=== PATIENT | male | born 1945 | race Caucasian/White ===

== ENCOUNTER 2017-07-30 17:20 | Inpatient (IN) | payer MEDICARE ==
[~2017-07-30] VITALS: Ht 175.3 cm; Wt 76.4 kg
[2017-07-30] MEDS ORDERED: ONDANSETRON 4MG/2ML VIAL (J2405) IV PRN (18:15)
[2017-07-30 21:00] VITALS: BP 141/66
[2017-07-30] MEDS ORDERED: BACITAB PO (21:47)
[2017-07-30] MEDS ORDERED: FENO54TA2 PO (21:47)
[2017-07-30] MEDS ORDERED: FINA5TAB2 PO (21:47)
[2017-07-30] MEDS ORDERED: RAMI10CA PO (21:47)
[2017-07-30] MEDS ORDERED: SIMV20TA2 PO (21:47)
[2017-07-30] MEDS ORDERED: ALFU10TA2 PO (21:47)
[2017-07-30] MEDS ORDERED: TOPI25TA10 PO (21:47)
[2017-07-30] MEDS ORDERED: CILO100T PO (21:47)
[2017-07-30] MEDS ORDERED: INSUH10VL SC (21:47)
[2017-07-30] MEDS ORDERED: TRAM50TA2 PO (21:47)
[2017-07-30] MEDS ORDERED: PERC5TAB12 PO (21:47)
[2017-07-30] MEDS ORDERED: METO50TA7 PO (21:47)
[2017-07-30] MEDS ORDERED: VITA100066 PO (21:47)
[2017-07-30] MEDS ORDERED: NIFE15TA PO (21:47)
[2017-07-30] MEDS ORDERED: ACET1TAB17 PO (21:47)
[2017-07-30] MEDS ORDERED: INSULANT SC (21:47)
[2017-07-30] MEDS ORDERED: HYDR25TAB PO (21:47)
[2017-07-30] MEDS ORDERED: OMEP20CA3 PO (21:47)
[2017-07-30 23:04] LABS: BASO % 0.2 % (0.0-1.0); EOS # 0.2 10^3/uL (0.0-0.50); EOS % 1.8 % (0.0-3.0); LYMPH # 1.5 10^3/uL (1.5-4.5); LYMPH % 12.8 % (24.0-44.0); MEAN CORPUSCULAR HEMOGLOBIN 26.8 pg (27.0-33.0); MEAN CORPUSCULAR HGB CONC 31.9 g/dl (32.0-36.5); MONO % 8.3 % (0.0-5.0); NEUTROPHILS # 8.7 10^3/uL (1.8-7.7); NEUTROPHILS % 75.9 % (36.0-66.0); PLATELET COUNT, AUTOMATED 549 10^3/uL (150-450); RED CELL DISTRIBUTION WIDTH 14.5 % (11.5-14.5); WHITE BLOOD COUNT 11.5 10^3/uL (4.0-10.0)
[2017-07-30 23:16] LABS: INR 1.15
[2017-07-30] MEDS: HEPARIN SOD (PORCINE) 5000 UNITS/ML VIAL SC SCH (23:26)
[2017-07-30] MEDS: CILOSTAZOL 100 MG TAB (PLETAL) PO SCH (23:26)
[2017-07-30] MEDS: TOPIRAMATE (TopAMAX) 25 MG TAB PO SCH (23:26)
[2017-07-30] MEDS: PIPERACILLIN/TAZOBACTAM SOD 3.375 GM in APPROPRIATE DILUENT 1 EA IV SCH (23:26)
[2017-07-30] MEDS: SIMVASTATIN 20 MG TAB PO SCH (23:27)
[2017-07-30] MEDS: PERCOCET 5MG/325MG TAB PO PRN (23:27)
[2017-07-30 23:28] LABS: ALBUMIN 2.3 GM/DL (3.2-5.2); ALBUMIN/GLOBULIN RATIO 0.43 (1.00-1.93); ALKALINE PHOSPHATASE 90 U/L (45-117); ALT/SGPT 10 U/L (12-78); ANION GAP 8 MEQ/L (8-16); AST/SGOT 10 U/L (7-37); BILIRUBIN,TOTAL 0.2 MG/DL (0.2-1.0); BLOOD UREA NITROGEN 25 MG/DL (7-18); CALCIUM LEVEL 8.7 MG/DL (8.8-10.2); CARBON DIOXIDE LEVEL 28 MEQ/L (21-32); CHLORIDE LEVEL 101 MEQ/L (98-107); CREATININE FOR GFR 1.26 MG/DL (0.70-1.30); GLOMERULAR FILTRATION RATE > 60.0 (>42); GLUCOSE, FASTING 180 MG/DL (83-110); POTASSIUM SERUM 3.5 MEQ/L (3.5-5.1); SODIUM LEVEL 137 MEQ/L (136-145); TOTAL PROTEIN 7.6 GM/DL (6.4-8.2)
[2017-07-30] MEDS: METOPROLOL TART 50 MG TAB PO SCH (23:28)
[2017-07-31] MEDS: traMADol 50 MG TAB PO PRN ×2 (01:02→17:29)
[2017-07-31] MEDS: PIPERACILLIN/TAZOBACTAM SOD 3.375 GM in APPROPRIATE DILUENT 1 EA IV SCH ×4 (04:58→21:42)
[2017-07-31] MEDS: PERCOCET 5MG/325MG TAB PO PRN ×2 (04:59→20:50)
[2017-07-31 06:00] VITALS: BP 134/67
[2017-07-31] MEDS: HumaLOG INSULIN (NovoLOG) PER UNIT SC SCH ×4 (07:30→21:43)
[2017-07-31] MEDS ORDERED: HumaLOG INSULIN (NovoLOG) PER UNIT SC SCH (07:30)
[2017-07-31] MEDS ORDERED: GLUCAGON FOR INJ 1 MG VIAL (J1610) SC PRN (08:45)
[2017-07-31] MEDS ORDERED: GLUCOSE 4 GM CHEW TABLET PO PRN (08:45)
[2017-07-31] MEDS ORDERED: DEXTROSE 50% 50 ML SYRINGE IV PRN (08:45)
[2017-07-31] MEDS: RAMIPRIL 5 MG CAP PO SCH (09:21)
[2017-07-31] MEDS: hydroCHLOROthiazide 25 MG TAB PO SCH (09:21)
[2017-07-31] MEDS: LACTOBACILLUS ACIDOPHILUS CAP (BACID) PO SCH ×3 (09:21→17:28)
[2017-07-31] MEDS: HEPARIN SOD (PORCINE) 5000 UNITS/ML VIAL SC SCH ×2 (09:21→21:42)
[2017-07-31] MEDS: NIFEdipine 60 MG XL TAB PO SCH (09:21)
[2017-07-31] MEDS: CILOSTAZOL 100 MG TAB (PLETAL) PO SCH ×2 (09:21→21:42)
[2017-07-31] MEDS: VITAMIN D 1,000 INTERNATIONAL UNITS TABLET PO SCH (09:22)
[2017-07-31] MEDS: METOPROLOL TART 50 MG TAB PO SCH ×2 (09:22→21:43)
[2017-07-31] MEDS: OMEPRAZOLE 20 MG CAP PO SCH (09:22)
[2017-07-31] MEDS: TOPIRAMATE (TopAMAX) 25 MG TAB PO SCH ×2 (09:22→21:43)
[2017-07-31] MEDS: FINASTERIDE 5 MG TAB PO SCH (09:22)
--- NOTE | 2017-07-31 12:28 | HPEPDOC ---
General Date of Admission Jul 30, 2017 at 20:39 Attending Physician: Jose Francisco Bustillo MD Chief Complaint Nonhealing left transmetatarsal amputation and diabetes mellitus Source: Patient, Old records Exam Limitations: No limitations History of Present Illness Patient is a 72-year-old male with a past medical history significant for diabetes, hypertension, coronary artery disease who underwent a left transmetatarsal amputation which has subsequently broke down and is nonhealing. Patient was initially seen in the office and scheduled for an angiogram of the left lower extremity which has not yet occurred. Patient was most recently admitted to an outside hospital where he was treated for his left nonhealing transmetatarsal amputation. The patient was transferred to [facility] for a higher level of care to undergo a left lower extremity angiogram with possible angioplasty and/or stenting. The patient may also require surgical intervention for his nonhealing left transmetatarsal amputation. Patient has undergone wound care treatment at the wound care center for his nonhealing left transmetatarsal amputation. Home Medications Scheduled Alfuzosin Hydrochloride (Alfuzosin HCl ER) 10 Mg Tab, 10 MG PO DAILY, (Reported) Cholecalciferol (Vitamin D) 1,000 Unit Tab, 1,000 UNIT PO DAILY, (Reported) Cilostazol (Cilostazol) 100 Mg Tab, 100 MG PO BID, (Reported) Fenofibrate (Fenofibrate) 54 Mg Tab, 54 MG PO DAILY, (Reported) Finasteride (Finasteride) 5 Mg Tab, 5 MG PO DAILY, (Reported) Hydrochlorothiazide (Hydrochlorothiazide) 25 Mg Tab, 25 MG PO DAILY, (Reported) Insulin Aspart (Novolog) 100 U/Ml Inj, 1 DOSE SC AC, (Reported) Insulin Glargine (Lantus) 1 Units/0.01 Ml Susp, 55 UNITS SC DAILY, (Reported) Lactobacillus Acidophilus (Bacid) 1 Tab Tab, 1 TAB PO WM, (Reported) Metoprolol Tartrate (Metoprolol Tartrate) 50 Mg Tab, 50 MG PO BID, (Reported) Nifedipine (Nifedical Xl) 60 Mg Tab, 60 MG PO DAILY, (Reported) Omeprazole (Omeprazole) 20 Mg Cap, 20 MG PO DAILY, (Reported) Ramipril (Ramipril) 10 Mg Cap, 10 MG PO DAILY, (Reported) Simvastatin (Simvastatin) 20 Mg Tab, 20 MG PO QHS, (Reported) Topiramate (Topiramate) 25 Mg Tab, 25 MG PO BID, (Reported) Scheduled PRN Acetaminophen (Acetaminophen) 325 Mg Tab, 650 MG PO Q6H PRN for PAIN, (Reported) Oxycodone/Acetaminophen (Percocet 5-325 mg) 1 Tab Tab, 1 TAB PO BID PRN for PAIN , (Reported) Tramadol HCl (Tramadol HCl) 50 Mg Tab, 50 MG PO Q6H PRN for PAIN, (Reported) Allergies Coded Allergies: No Known Allergies (Unverified , 07/30/17) Past Medical History Medical History Diabetes type 2 Hypercholesterolemia Hypertension Coronary artery disease Surgical History Left transmetatarsal amputation Family History Significant Family History: Diabetes Father is with a history of diabetes mother is with a history of diabetes. Patient has one brother and 2 sisters all of which are and have a history of diabetes. Social History * Smoker: former Smoker, quit greater than 1 year Alcohol: Denies Drugs: denies Recent Travel/Sick Contacts: Denies: Recent travel, Recent sick contacts Psychosocial History: No pertinent psych hx Review of Symptoms Constitutional: Denies: Chills, Fever, Malaise, Night Sweats, Weakness, Fatigue , Weight Loss, Lethargy, Other Eyes: Denies: Pain, Vision change, Conjunctivae inflammation, Eyelid inflammation, Redness, Other ENT: Denies: Head Aches, Ear Pain, Dysphagia, Sinus Congestion, Post Nasal Drip , Sore Throat, Epistaxis, Other Symptoms Skin: Denies: Rash, Lesions, Jaundice, Bruising, Itching, Dry, Breakdown, Nail Changes, Other Pulmonary: Denies: Dyspnea, Cough, Pleuritic Chest Pain, Other Symptoms Cardiovascular: Denies: Chest Pain, Palpitations, Orthopnea, Paroxysmal Noc. Dyspnea, Edema, Lt Headedness, Other Symptoms Gastrointestinal: Denies: Nausea, Vomiting, Abdominal Pain, Diarrhea, Constipation, Melena, Hematochezia, Other Symptoms Genitourinary: Denies: Dysuria, Frequency, Incontinence, Hematuria, Retention, Other Symptoms Hematologic: Denies: Bruising, Bleeding Excessively, Petecchia, Purpura, Enlarged Lymph Nodes, Other Hematologic Endocrine: Denies: Polydipsia, Polyphagia, Polyuria, Heat Intolerance, Cold Intolerance, Other Endocrine Sx Musculoskeletal: Denies: Neck Pain, Back Pain, Shoulder Pain, Arm Pain, Hand Pain, Leg Pain, Foot Pain, Joint Pain, Muscle Pain, Spasms, Other Symptoms Neurological: Denies: Weakness, Numbness, Incoordination, Change in speech, Confusion, Seizures, Other Symptoms Psych: Denies: Mood Normal, Anxiety, Depression, Memory Issues, Thoughts of Self Harm, Anger, Thoughts of Harming Other, Other Psych Physical Examination General Exam: Positive: Alert, No Acute Distress Eye Exam: Positive: PERRLA, Conjunctiva & lids normal, EOMI, Negative: Sclera icteric, Ptosis, Other Eye Symptoms ENT Exam: Positive: Atraumatic, Mucous membr. moist/pink, Pharynx Normal Neck Exam: Positive: Supple, +2 carotid pulse wo bruit, Other, Negative: JVD, thyromegaly, Lymphadenopathy Chest Exam: Positive: Clear to auscultation, Normal air movement, Other, Negative: Rales, Rhonchi, Wheezing, Diminished Heart Exam: Positive: Rate Normal, Normal S1, Normal S2, Other, Negative: Tachycardic, Bradycardic, Regular Rhythm, Irregular Rhythm, Gallops , Murmurs, Rubs Telemetry: Positive: No significant arrhythmia, Other Telemetry:, Negative: Sinus, Atrial fibrillation, Tachycardia, Bradycardia, AV Block, Pause, SV Tach, PVCs, PACs, Asystole Abdomen Exam: Positive: Normal bowel sounds, Soft, Other, Negative: BS Hyperactive, BS Hypoactive, Tenderness, Hepatospenomegaly, Mass , Hernia Extremity Exam: Positive: Normal pulses, Other, Negative: Clubbing, Cyanosis, Edema, Tenderness, Swelling Skin Exam: Positive: Nl turgor and temperature, Negative: Rash, Breakdown, Lesion, Pruritus, Other skin issue Neuro Exam: Positive: Normal Speech, Reflexes 2+ Psych Exam: Positive: Mental status NL, Mood NL, Oriented x 3 Other physical findings Left transmetatarsal amputation wound is open with minimal granulation tissue and fibrinous exudate and slough within the wound. Vital Signs Vital Signs Date Time Temp Pulse Resp B/P (MAP) Pulse Ox O2 Delivery O2 Flow Rate FiO2 07/31/17 09:21 134/67 07/31/17 06:00 97.7 73 14 97 Room Air Laboratory Data Labs 24H Laboratory Tests 2 07/30/17 22:58: Immature Granulocyte % (Auto) 1.0H, White Blood Count 11.5H, Red Blood Count 3.32L, Hemoglobin 8.9L, Hematocrit 27.9L, Mean Corpuscular Volume 84.0, Mean Corpuscular Hemoglobin 26.8L, Mean Corpuscular Hemoglobin Concent 31.9L, Red Cell Distribution Width 14.5, Platelet Count 549H, Neutrophils (%) (Auto) 75.9H , Lymphocytes (%) (Auto) 12.8L, Monocytes (%) (Auto) 8.3H, Eosinophils (%) (Auto ) 1.8, Basophils (%) (Auto) 0.2, Neutrophils # (Auto) 8.7H, Lymphocytes # (Auto ) 1.5, Monocytes # (Auto) 1.0H, Eosinophils # (Auto) 0.2, Basophils # (Auto) 0.0 , Immature Granulocyte # (Auto) 0.1H, Nucleated Red Blood Cells % (auto) 0.0, Prothrombin Time 14.9H, Prothromb Time International Ratio 1.15, Activated Partial Thromboplast Time 39.6H, Anion Gap 8, Glomerular Filtration Rate > 60.0 , Blood Urea Nitrogen 25H, Creatinine 1.26, Sodium Level 137, Potassium Level 3.5, Chloride Level 101, Carbon Dioxide Level 28, Calcium Level 8.7L, Aspartate Amino Transf (AST/SGOT) 10, Alanine Aminotransferase (ALT/SGPT) 10L, Alkaline Phosphatase 90, Total Bilirubin 0.2, Total Protein 7.6, Albumin 2.3L, Albumin/ Globulin Ratio 0.43L 07/31/17 08:19: Bedside Glucose (Misc Panel) 226H 07/31/17 11:38: Bedside Glucose (Misc Panel) 203H CBC/BMP Laboratory Tests 07/30/17 22:58 Red Blood Count 3.32 L, Mean Corpuscular Volume 84.0, Mean Corpuscular Hemoglobin 26.8 L, Mean Corpuscular Hemoglobin Concent 31.9 L, Red Cell Distribution Width 14.5, Neutrophils (%) (Auto) 75.9 H, Lymphocytes (%) (Auto) 12.8 L, Monocytes (%) (Auto) 8.3 H, Eosinophils (%) (Auto) 1.8, Basophils (%) ( Auto) 0.2, Neutrophils # (Auto) 8.7 H, Lymphocytes # (Auto) 1.5, Monocytes # ( Auto) 1.0 H, Eosinophils # (Auto) 0.2, Basophils # (Auto) 0.0, Calcium Level 8.7 L, Aspartate Amino Transf (AST/SGOT) 10, Alanine Aminotransferase (ALT/SGPT ) 10 L, Alkaline Phosphatase 90, Total Bilirubin 0.2, Total Protein 7.6, Albumin 2.3 L Assessment/Plan Patient is a 72-year-old male with history of diabetes mellitus and a nonhealing left transmetatarsal amputation wound with nonpalpable pulses in the left lower extremity. She was transferred from an outside institution for a [facility] higher level of care and will undergo a left lower extremity angiogram with possible angioplasty and stent. The disposition of the left transmetatarsal amputation wound will depend on the findings during angiography. Plan / VTE VTE Prophylaxis Ordered?: Yes Jose Francisco Bustillo MD Jul 31, 2017 12:28
[2017-07-31] MEDS ORDERED: fentaNYL 100 MCG/2 ML INJECTION (J3010) As Ordered ONE (12:31)
[2017-07-31] MEDS ORDERED: HEPARIN 1,000 UNITS/ML 10ML VIAL (FOR RADIOLOGY& DIALYSIS ONLY) As Ordered ONE (12:31)
[2017-07-31] MEDS ORDERED: MIDAZOLAM INJ 2 MG/2 ML VIAL (J2250) As Ordered ONE (12:31)
[2017-07-31] MEDS ORDERED: PROTAMINE SULF INJ 50 MG/5 ML VIAL (J2720) As Ordered ONE (12:31)
[2017-07-31] MEDS ORDERED: ISOVUE-300 61% 50ML VIAL (Q9967) As Ordered ONE (12:31)
[2017-07-31 15:00] VITALS: BP 186/82
[2017-07-31] MEDS: LEVEMIR (INSULIN DETEMIR) 1 UNITS/0.01ML SC SCH (15:25)
[2017-07-31 15:30] VITALS: BP 158/73
[2017-07-31 16:00] VITALS: BP 157/72
[2017-07-31] MEDS: ACETAMINOPHEN TAB 650MG DOSE (2X325MG) PO PRN (21:41)
[2017-07-31] MEDS: SIMVASTATIN 20 MG TAB PO SCH (21:42)
[2017-07-31 22:00] VITALS: BP 152/70
[2017-08-01] MEDS: traMADol 50 MG TAB PO PRN ×3 (00:59→21:05)
[2017-08-01] MEDS: PIPERACILLIN/TAZOBACTAM SOD 3.375 GM in APPROPRIATE DILUENT 1 EA IV SCH ×4 (04:59→21:06)
[2017-08-01] MEDS: ACETAMINOPHEN TAB 650MG DOSE (2X325MG) PO PRN ×2 (05:01→18:09)
[2017-08-01 06:00] VITALS: BP 168/84
[2017-08-01] MEDS: LACTOBACILLUS ACIDOPHILUS CAP (BACID) PO SCH ×3 (08:00→17:02)
[2017-08-01] MEDS: LEVEMIR (INSULIN DETEMIR) 1 UNITS/0.01ML SC SCH (09:00)
[2017-08-01] MEDS: OMEPRAZOLE 20 MG CAP PO SCH (09:25)
[2017-08-01] MEDS: NIFEdipine 60 MG XL TAB PO SCH (09:25)
[2017-08-01] MEDS: CILOSTAZOL 100 MG TAB (PLETAL) PO SCH ×2 (09:25→21:11)
[2017-08-01] MEDS: hydroCHLOROthiazide 25 MG TAB PO SCH (09:25)
[2017-08-01] MEDS: RAMIPRIL 5 MG CAP PO SCH (09:26)
[2017-08-01] MEDS: VITAMIN D 1,000 INTERNATIONAL UNITS TABLET PO SCH (09:26)
[2017-08-01] MEDS: METOPROLOL TART 50 MG TAB PO SCH ×2 (09:26→21:04)
[2017-08-01] MEDS: FINASTERIDE 5 MG TAB PO SCH (09:26)
[2017-08-01] MEDS: TOPIRAMATE (TopAMAX) 25 MG TAB PO SCH ×2 (09:28→21:03)
[2017-08-01] MEDS: PERCOCET 5MG/325MG TAB PO PRN ×2 (09:29→17:08)
[2017-08-01] MEDS: HEPARIN SOD (PORCINE) 5000 UNITS/ML VIAL SC SCH ×2 (09:30→21:04)
[2017-08-01] MEDS: HumaLOG INSULIN (NovoLOG) PER UNIT SC SCH ×4 (09:30→21:00)
[2017-08-01 14:00] VITALS: BP 149/68
[2017-08-01 21:01] VITALS: BP 154/72
[2017-08-01] MEDS: SIMVASTATIN 20 MG TAB PO SCH (21:05)
[2017-08-02] MEDS: PERCOCET 5MG/325MG TAB PO PRN ×2 (04:44→17:43)
[2017-08-02] MEDS: DAKIN'S 0.25% HALF-STRENGTH SOLN 480 ML TOP SCH ×4 (04:45→21:31)
[2017-08-02] MEDS: PIPERACILLIN/TAZOBACTAM SOD 3.375 GM in APPROPRIATE DILUENT 1 EA IV SCH ×4 (04:45→21:29)
[2017-08-02 06:00] VITALS: BP 170/82
[2017-08-02] MEDS: traMADol 50 MG TAB PO PRN ×3 (06:39→21:28)
[2017-08-02] MEDS: LEVEMIR (INSULIN DETEMIR) 1 UNITS/0.01ML SC SCH (09:00)
[2017-08-02] MEDS: NIFEdipine 60 MG XL TAB PO SCH (09:00)
[2017-08-02] MEDS: OMEPRAZOLE 20 MG CAP PO SCH (09:12)
[2017-08-02] MEDS: hydroCHLOROthiazide 25 MG TAB PO SCH (09:13)
[2017-08-02] MEDS: FINASTERIDE 5 MG TAB PO SCH (09:13)
[2017-08-02] MEDS: HEPARIN SOD (PORCINE) 5000 UNITS/ML VIAL SC SCH ×2 (09:13→21:26)
[2017-08-02] MEDS: LACTOBACILLUS ACIDOPHILUS CAP (BACID) PO SCH ×3 (09:14→17:41)
[2017-08-02] MEDS: RAMIPRIL 5 MG CAP PO SCH (09:15)
[2017-08-02] MEDS: CILOSTAZOL 100 MG TAB (PLETAL) PO SCH ×2 (09:15→21:27)
[2017-08-02] MEDS: HumaLOG INSULIN (NovoLOG) PER UNIT SC SCH ×4 (09:16→21:00)
[2017-08-02] MEDS: METOPROLOL TART 50 MG TAB PO SCH ×2 (09:16→21:27)
[2017-08-02] MEDS: TOPIRAMATE (TopAMAX) 25 MG TAB PO SCH ×2 (09:29→21:27)
[2017-08-02] MEDS: ACETAMINOPHEN TAB 650MG DOSE (2X325MG) PO PRN (09:30)
[2017-08-02] MEDS: VITAMIN D 1,000 INTERNATIONAL UNITS TABLET PO SCH (09:31)
[2017-08-02] MEDS: SIMVASTATIN 20 MG TAB PO SCH (21:27)
[2017-08-02 22:00] VITALS: BP 161/77
[2017-08-03] MEDS: PIPERACILLIN/TAZOBACTAM SOD 3.375 GM in APPROPRIATE DILUENT 1 EA IV SCH ×4 (04:12→21:01)
[2017-08-03] MEDS: traMADol 50 MG TAB PO PRN ×3 (04:13→22:55)
[2017-08-03 06:00] VITALS: BP 134/85
[2017-08-03] MEDS: ACETAMINOPHEN TAB 650MG DOSE (2X325MG) PO PRN (07:44)
[2017-08-03] MEDS: HEPARIN SOD (PORCINE) 5000 UNITS/ML VIAL SC SCH (09:16)
[2017-08-03] MEDS: LEVEMIR (INSULIN DETEMIR) 1 UNITS/0.01ML SC SCH (09:16)
[2017-08-03] MEDS: hydroCHLOROthiazide 25 MG TAB PO SCH (09:17)
[2017-08-03] MEDS: OMEPRAZOLE 20 MG CAP PO SCH (09:17)
[2017-08-03] MEDS: NIFEdipine 60 MG XL TAB PO SCH (09:17)
[2017-08-03] MEDS: METOPROLOL TART 50 MG TAB PO SCH ×2 (09:17→21:01)
[2017-08-03] MEDS: RAMIPRIL 5 MG CAP PO SCH (09:17)
[2017-08-03] MEDS: FINASTERIDE 5 MG TAB PO SCH (09:18)
[2017-08-03] MEDS: TOPIRAMATE (TopAMAX) 25 MG TAB PO SCH ×2 (09:18→21:00)
[2017-08-03] MEDS: LACTOBACILLUS ACIDOPHILUS CAP (BACID) PO SCH ×3 (09:18→19:11)
[2017-08-03] MEDS: VITAMIN D 1,000 INTERNATIONAL UNITS TABLET PO SCH (09:18)
[2017-08-03] MEDS: PERCOCET 5MG/325MG TAB PO PRN ×2 (09:19→21:00)
[2017-08-03] MEDS: HumaLOG INSULIN (NovoLOG) PER UNIT SC SCH ×4 (09:19→21:00)
[2017-08-03] MEDS: DAKIN'S 0.25% HALF-STRENGTH SOLN 480 ML TOP SCH ×3 (09:20→21:01)
[2017-08-03] MEDS: CILOSTAZOL 100 MG TAB (PLETAL) PO SCH ×2 (09:48→21:01)
[2017-08-03 14:00] VITALS: BP 144/74
[2017-08-03] MEDS: SIMVASTATIN 20 MG TAB PO SCH (21:00)
[2017-08-03 22:00] VITALS: BP 151/72
[2017-08-04] MEDS: PIPERACILLIN/TAZOBACTAM SOD 3.375 GM in APPROPRIATE DILUENT 1 EA IV SCH ×4 (04:30→21:20)
[2017-08-04 06:00] VITALS: BP 149/60
[2017-08-04] MEDS: HumaLOG INSULIN (NovoLOG) PER UNIT SC SCH ×4 (07:30→21:00)
[2017-08-04] MEDS: LACTOBACILLUS ACIDOPHILUS CAP (BACID) PO SCH ×3 (08:00→21:40)
[2017-08-04] MEDS: LEVEMIR (INSULIN DETEMIR) 1 UNITS/0.01ML SC SCH (09:33)
[2017-08-04] MEDS: FINASTERIDE 5 MG TAB PO SCH (09:34)
[2017-08-04] MEDS: RAMIPRIL 5 MG CAP PO SCH (09:34)
[2017-08-04] MEDS: VITAMIN D 1,000 INTERNATIONAL UNITS TABLET PO SCH (09:34)
[2017-08-04] MEDS: TOPIRAMATE (TopAMAX) 25 MG TAB PO SCH ×2 (09:34→21:21)
[2017-08-04] MEDS: CILOSTAZOL 100 MG TAB (PLETAL) PO SCH ×2 (09:34→21:20)
[2017-08-04] MEDS: hydroCHLOROthiazide 25 MG TAB PO SCH (09:34)
[2017-08-04] MEDS: METOPROLOL TART 50 MG TAB PO SCH ×2 (09:35→21:20)
[2017-08-04] MEDS: NIFEdipine 60 MG XL TAB PO SCH (09:35)
[2017-08-04] MEDS: OMEPRAZOLE 20 MG CAP PO SCH (09:35)
[2017-08-04] MEDS: DAKIN'S 0.25% HALF-STRENGTH SOLN 480 ML TOP SCH ×2 (10:00→18:00)
[2017-08-04] MEDS: PERCOCET 5MG/325MG TAB PO PRN ×2 (10:56→21:37)
--- NOTE | 2017-08-04 11:23 | ECGEPIP ---
Stationary ECG Study [facility] Test Date: 2017-08-03 Pat Name: LORENA APODACA Department: Room: [place] [address] Gender: M Application Architect: : [id number] Requested By: Greg Bradley Order Number: [id number] Reading MD: Jesus Anthony Measurements Intervals [place] Rate: 61 P: 29 LA: 157 QRS: 27 QRSD: 97 T: 44 QT: 434 QTc: 439 Interpretive Statements SINUS RHYTHM Nonspecific ST-T abnormalities. No prior ECG available for comparison at the time of interpretation. Electronically Signed On 08-04-2017 11:23:04 EST by Jesus Anthony
[2017-08-04 14:00] VITALS: BP 147/71
[2017-08-04] MEDS: NS 0.45% 1,000 ML IV SCH (14:42)
[2017-08-04] MEDS ORDERED: PROPOFOL 200 MG/20 ML VIAL As Ordered ONE (16:07)
[2017-08-04] MEDS ORDERED: MIDAZOLAM INJ 2 MG/2 ML VIAL (J2250) As Ordered ONE (16:08)
[2017-08-04] MEDS ORDERED: fentaNYL 100 MCG/2 ML INJECTION (J3010) As Ordered ONE (16:08)
[2017-08-04] MEDS ORDERED: PERCOCET 5MG/325MG TAB PO PRN (17:15)
[2017-08-04] MEDS ORDERED: LR 1,000 ML IV SCH (17:15)
[2017-08-04] MEDS ORDERED: ONDANSETRON 4MG/2ML VIAL (J2405) IV PRN (17:15)
[2017-08-04 18:18] VITALS: BP 149/76
[2017-08-04] MEDS: SIMVASTATIN 20 MG TAB PO SCH (21:21)
[2017-08-05] MEDS: DAKIN'S 0.25% HALF-STRENGTH SOLN 480 ML TOP SCH ×3 (02:00→17:12)
[2017-08-05] MEDS: PIPERACILLIN/TAZOBACTAM SOD 3.375 GM in APPROPRIATE DILUENT 1 EA IV SCH ×4 (03:50→21:47)
[2017-08-05] MEDS: NS 0.45% 1,000 ML IV SCH ×2 (03:51→23:35)
[2017-08-05 06:00] VITALS: BP 159/74
[2017-08-05] MEDS: HumaLOG INSULIN (NovoLOG) PER UNIT SC SCH ×4 (08:50→21:00)
[2017-08-05] MEDS: FINASTERIDE 5 MG TAB PO SCH (08:51)
[2017-08-05] MEDS: VITAMIN D 1,000 INTERNATIONAL UNITS TABLET PO SCH (08:51)
[2017-08-05] MEDS: LACTOBACILLUS ACIDOPHILUS CAP (BACID) PO SCH ×3 (08:51→17:22)
[2017-08-05] MEDS: OMEPRAZOLE 20 MG CAP PO SCH (08:51)
[2017-08-05] MEDS: LEVEMIR (INSULIN DETEMIR) 1 UNITS/0.01ML SC SCH (08:51)
[2017-08-05] MEDS: NIFEdipine 60 MG XL TAB PO SCH (08:53)
[2017-08-05] MEDS: TOPIRAMATE (TopAMAX) 25 MG TAB PO SCH ×2 (08:54→21:46)
[2017-08-05] MEDS: CILOSTAZOL 100 MG TAB (PLETAL) PO SCH ×2 (08:54→21:46)
[2017-08-05] MEDS: hydroCHLOROthiazide 25 MG TAB PO SCH (08:55)
[2017-08-05] MEDS: METOPROLOL TART 50 MG TAB PO SCH ×2 (08:55→21:47)
[2017-08-05] MEDS: RAMIPRIL 5 MG CAP PO SCH (08:55)
--- NOTE | 2017-08-05 10:47 | REP ---
PA and lateral chest: There are no comparisons. The lung allen are clear. The cardiac size is normal The rita, mediastinum, and bony thorax are unremarkable. Impression: Negative PA and lateral chest. Signed by Juno Teran MD 08/05/2017 10:38 A
[2017-08-05 14:00] VITALS: BP 136/65
[2017-08-05] MEDS: PERCOCET 5MG/325MG TAB PO PRN (17:22)
[2017-08-05] MEDS: SIMVASTATIN 20 MG TAB PO SCH (21:46)
[2017-08-05] MEDS: traMADol 50 MG TAB PO PRN (21:48)
[2017-08-05 22:00] VITALS: BP 141/72
[2017-08-06] MEDS: ACETAMINOPHEN TAB 650MG DOSE (2X325MG) PO PRN ×2 (01:47→15:16)
[2017-08-06] MEDS: DAKIN'S 0.25% HALF-STRENGTH SOLN 480 ML TOP SCH ×3 (02:00→18:00)
[2017-08-06] MEDS: PIPERACILLIN/TAZOBACTAM SOD 3.375 GM in APPROPRIATE DILUENT 1 EA IV SCH ×4 (04:51→21:32)
[2017-08-06] MEDS: PERCOCET 5MG/325MG TAB PO PRN (05:22)
[2017-08-06 06:00] VITALS: BP 160/68
[2017-08-06] MEDS: RAMIPRIL 5 MG CAP PO SCH (08:39)
[2017-08-06] MEDS: VITAMIN D 1,000 INTERNATIONAL UNITS TABLET PO SCH (08:39)
[2017-08-06] MEDS: CILOSTAZOL 100 MG TAB (PLETAL) PO SCH ×2 (08:39→21:31)
[2017-08-06] MEDS: TOPIRAMATE (TopAMAX) 25 MG TAB PO SCH ×2 (08:40→21:32)
[2017-08-06] MEDS: hydroCHLOROthiazide 25 MG TAB PO SCH (08:40)
[2017-08-06] MEDS: NIFEdipine 60 MG XL TAB PO SCH (08:40)
[2017-08-06] MEDS: FINASTERIDE 5 MG TAB PO SCH (08:40)
[2017-08-06] MEDS: METOPROLOL TART 50 MG TAB PO SCH ×2 (08:40→21:33)
[2017-08-06] MEDS: OMEPRAZOLE 20 MG CAP PO SCH (08:40)
[2017-08-06] MEDS: HumaLOG INSULIN (NovoLOG) PER UNIT SC SCH ×4 (08:41→21:00)
[2017-08-06] MEDS: LACTOBACILLUS ACIDOPHILUS CAP (BACID) PO SCH ×3 (08:41→18:00)
[2017-08-06] MEDS: LEVEMIR (INSULIN DETEMIR) 1 UNITS/0.01ML SC SCH (08:42)
[2017-08-06] MEDS: traMADol 50 MG TAB PO PRN ×2 (10:49→18:51)
[2017-08-06] MEDS: fentaNYL 100 MCG/2 ML INJECTION (J3010) IV PRN ×2 (12:07→12:22)
[2017-08-06 14:00] VITALS: BP 159/73
[2017-08-06] MEDS: SIMVASTATIN 20 MG TAB PO SCH (21:32)
[2017-08-06] MEDS ORDERED: PROPOFOL 200 MG/20 ML VIAL As Ordered ONE (22:35)
[2017-08-06] MEDS ORDERED: MIDAZOLAM INJ 2 MG/2 ML VIAL (J2250) As Ordered ONE (22:35)
[2017-08-06] MEDS ORDERED: LIDOCAINE 2% INJ 100 MG/5 ML SDV (FOR ANES.) As Ordered ONE (22:35)
[2017-08-06] MEDS ORDERED: ONDANSETRON 4MG/2ML VIAL (J2405) As Ordered ONE (22:35)
[2017-08-06] MEDS ORDERED: fentaNYL 250 MCG/5 ML INJECTION (J3010) As Ordered ONE (22:35)
[2017-08-06] MEDS ORDERED: PHENYLephrine HCL 500 MCG/5 ML (100MCG/ML) SYRINGE (J2370) As Ordered ONE (23:35)
[2017-08-07] MEDS ORDERED: ONDANSETRON 4MG/2ML VIAL (J2405) IV PRN
[2017-08-07] MEDS ORDERED: PERCOCET 5MG/325MG TAB PO PRN
[2017-08-07] MEDS ORDERED: LR 1,000 ML IV SCH
[2017-08-07] MEDS ORDERED: METOCLOPRAMIDE INJ 10MG/2ML VIAL (J2765) IV PRN
[2017-08-07] MEDS ORDERED: MEPERIDINE INJ 25 MG/ML VIAL (J2175) IV PRN
[2017-08-07] MEDS ORDERED: fentaNYL 100 MCG/2 ML INJECTION (J3010) As Ordered ONE (00:01)
[2017-08-07] MEDS: DAKIN'S 0.25% HALF-STRENGTH SOLN 480 ML TOP SCH ×2 (01:12→10:15)
[2017-08-07] MEDS: traMADol 50 MG TAB PO PRN ×3 (01:59→23:02)
[2017-08-07] MEDS: PIPERACILLIN/TAZOBACTAM SOD 3.375 GM in APPROPRIATE DILUENT 1 EA IV SCH ×4 (04:18→22:06)
[2017-08-07] MEDS: PERCOCET 5MG/325MG TAB PO PRN ×3 (06:00→20:32)
[2017-08-07 07:12] LABS: MEAN CORPUSCULAR HEMOGLOBIN 27.5 pg (27.0-33.0); MEAN CORPUSCULAR HGB CONC 32.7 g/dl (32.0-36.5); MEAN CORPUSCULAR VOLUME 84.1 fl (80.0-96.0); PLATELET COUNT, AUTOMATED 464 10^3/uL (150-450); RED CELL DISTRIBUTION WIDTH 14.5 % (11.5-14.5); WHITE BLOOD COUNT 12.1 10^3/uL (4.0-10.0)
[2017-08-07 07:35] LABS: ANION GAP 11 MEQ/L (8-16); BLOOD UREA NITROGEN 18 MG/DL (7-18); CALCIUM LEVEL 8.8 MG/DL (8.8-10.2); CARBON DIOXIDE LEVEL 24 MEQ/L (21-32); CHLORIDE LEVEL 104 MEQ/L (98-107); CREATININE FOR GFR 1.09 MG/DL (0.70-1.30); GLOMERULAR FILTRATION RATE > 60.0 (>42); GLUCOSE, FASTING 212 MG/DL (83-110); POTASSIUM SERUM 3.4 MEQ/L (3.5-5.1); SODIUM LEVEL 139 MEQ/L (136-145)
[2017-08-07 10:00] VITALS: BP 144/73
[2017-08-07] MEDS: LEVEMIR (INSULIN DETEMIR) 1 UNITS/0.01ML SC SCH (10:04)
[2017-08-07] MEDS: HumaLOG INSULIN (NovoLOG) PER UNIT SC SCH ×4 (10:04→21:00)
[2017-08-07] MEDS: LACTOBACILLUS ACIDOPHILUS CAP (BACID) PO SCH ×3 (10:10→17:39)
[2017-08-07] MEDS: VITAMIN D 1,000 INTERNATIONAL UNITS TABLET PO SCH (10:10)
[2017-08-07] MEDS: RAMIPRIL 5 MG CAP PO SCH (10:10)
[2017-08-07] MEDS: OMEPRAZOLE 20 MG CAP PO SCH (10:10)
[2017-08-07] MEDS: TOPIRAMATE (TopAMAX) 25 MG TAB PO SCH ×2 (10:10→20:31)
[2017-08-07] MEDS: hydroCHLOROthiazide 25 MG TAB PO SCH (10:11)
[2017-08-07] MEDS: METOPROLOL TART 50 MG TAB PO SCH ×2 (10:11→20:32)
[2017-08-07] MEDS: CILOSTAZOL 100 MG TAB (PLETAL) PO SCH ×2 (10:11→20:31)
[2017-08-07] MEDS: NIFEdipine 60 MG XL TAB PO SCH (10:11)
[2017-08-07] MEDS: FINASTERIDE 5 MG TAB PO SCH (10:15)
[2017-08-07 14:00] VITALS: BP 146/70
[2017-08-07] MEDS: SIMVASTATIN 20 MG TAB PO SCH (20:32)
[2017-08-07 22:00] VITALS: BP 145/67
[2017-08-08] MEDS: PERCOCET 5MG/325MG TAB PO PRN ×4 (00:23→20:21)
[2017-08-08] MEDS: PIPERACILLIN/TAZOBACTAM SOD 3.375 GM in APPROPRIATE DILUENT 1 EA IV SCH ×4 (04:16→20:21)
[2017-08-08 06:00] VITALS: BP 131/59
[2017-08-08] MEDS: OMEPRAZOLE 20 MG CAP PO SCH (08:18)
[2017-08-08] MEDS: CILOSTAZOL 100 MG TAB (PLETAL) PO SCH ×2 (08:18→20:21)
[2017-08-08] MEDS: LACTOBACILLUS ACIDOPHILUS CAP (BACID) PO SCH ×3 (08:18→16:25)
[2017-08-08] MEDS: FINASTERIDE 5 MG TAB PO SCH (08:18)
[2017-08-08] MEDS: RAMIPRIL 5 MG CAP PO SCH (08:19)
[2017-08-08] MEDS: hydroCHLOROthiazide 25 MG TAB PO SCH (08:19)
[2017-08-08] MEDS: TOPIRAMATE (TopAMAX) 25 MG TAB PO SCH ×2 (08:19→20:22)
[2017-08-08] MEDS: METOPROLOL TART 50 MG TAB PO SCH ×2 (08:19→20:22)
[2017-08-08] MEDS: VITAMIN D 1,000 INTERNATIONAL UNITS TABLET PO SCH (08:19)
[2017-08-08] MEDS: NIFEdipine 60 MG XL TAB PO SCH (08:20)
[2017-08-08] MEDS: HumaLOG INSULIN (NovoLOG) PER UNIT SC SCH ×4 (08:21→21:00)
[2017-08-08] MEDS: LEVEMIR (INSULIN DETEMIR) 1 UNITS/0.01ML SC SCH (08:22)
[2017-08-08] MEDS: traMADol 50 MG TAB PO PRN (11:02)
[2017-08-08 14:00] VITALS: BP 152/68
[2017-08-08] MEDS: SIMVASTATIN 20 MG TAB PO SCH (20:22)
[2017-08-08 22:00] VITALS: BP 120/52
[2017-08-09] MEDS: traMADol 50 MG TAB PO PRN (02:20)
[2017-08-09] MEDS: PIPERACILLIN/TAZOBACTAM SOD 3.375 GM in APPROPRIATE DILUENT 1 EA IV SCH ×4 (03:02→21:48)
[2017-08-09 06:00] VITALS: BP 153/74
[2017-08-09] MEDS: LEVEMIR (INSULIN DETEMIR) 1 UNITS/0.01ML SC SCH (09:00)
[2017-08-09] MEDS: LACTOBACILLUS ACIDOPHILUS CAP (BACID) PO SCH ×3 (10:11→17:59)
[2017-08-09] MEDS: VITAMIN D 1,000 INTERNATIONAL UNITS TABLET PO SCH (10:11)
[2017-08-09] MEDS: NIFEdipine 60 MG XL TAB PO SCH (10:11)
[2017-08-09] MEDS: TOPIRAMATE (TopAMAX) 25 MG TAB PO SCH ×2 (10:11→21:47)
[2017-08-09] MEDS: FINASTERIDE 5 MG TAB PO SCH (10:11)
[2017-08-09] MEDS: CILOSTAZOL 100 MG TAB (PLETAL) PO SCH ×2 (10:12→21:48)
[2017-08-09] MEDS: OMEPRAZOLE 20 MG CAP PO SCH (10:12)
[2017-08-09] MEDS: hydroCHLOROthiazide 25 MG TAB PO SCH (10:12)
[2017-08-09] MEDS: HumaLOG INSULIN (NovoLOG) PER UNIT SC SCH ×4 (10:13→21:00)
[2017-08-09] MEDS: RAMIPRIL 5 MG CAP PO SCH (10:13)
[2017-08-09] MEDS: METOPROLOL TART 50 MG TAB PO SCH ×2 (10:14→21:48)
[2017-08-09] MEDS: PERCOCET 5MG/325MG TAB PO PRN ×3 (10:15→21:47)
[2017-08-09 14:00] VITALS: BP 152/67
[2017-08-09] MEDS: SIMVASTATIN 20 MG TAB PO SCH (21:48)
[2017-08-09 22:00] VITALS: BP 140/63
[2017-08-10] MEDS: PIPERACILLIN/TAZOBACTAM SOD 3.375 GM in APPROPRIATE DILUENT 1 EA IV SCH ×2 (04:48→10:31)
[2017-08-10 06:00] VITALS: BP 142/58
[2017-08-10] MEDS: LEVEMIR (INSULIN DETEMIR) 1 UNITS/0.01ML SC SCH (08:28)
[2017-08-10] MEDS: HumaLOG INSULIN (NovoLOG) PER UNIT SC SCH (08:29)
[2017-08-10] MEDS: LACTOBACILLUS ACIDOPHILUS CAP (BACID) PO SCH (08:29)
[2017-08-10] MEDS: OMEPRAZOLE 20 MG CAP PO SCH (08:29)
[2017-08-10] MEDS: METOPROLOL TART 50 MG TAB PO SCH (08:29)
[2017-08-10] MEDS: VITAMIN D 1,000 INTERNATIONAL UNITS TABLET PO SCH (08:29)
[2017-08-10 08:30] VITALS: BP 142/58
[2017-08-10] MEDS: NIFEdipine 60 MG XL TAB PO SCH (08:30)
[2017-08-10] MEDS: FINASTERIDE 5 MG TAB PO SCH (08:30)
[2017-08-10] MEDS: CILOSTAZOL 100 MG TAB (PLETAL) PO SCH (08:30)
[2017-08-10] MEDS: TOPIRAMATE (TopAMAX) 25 MG TAB PO SCH (08:30)
[2017-08-10] MEDS: RAMIPRIL 5 MG CAP PO SCH (08:30)
[2017-08-10] MEDS: hydroCHLOROthiazide 25 MG TAB PO SCH (08:30)
--- NOTE | 2017-08-12 15:13 | REPIR ---
DATE OF PROCEDURE: 07/31/2017 PREPROCEDURE DIAGNOSES: Diabetes mellitus. Nonhealing left transmetatarsal amputation, peripheral arterial disease. POSTPROCEDURE DIAGNOSES: Diabetes mellitus. Nonhealing left transmetatarsal amputation, peripheral arterial disease. PROCEDURE: Aortogram, iliofemoral angiogram, selective common femoral artery catheter placement with angiogram, selective left superficial femoral artery catheter placement with angiogram, selective popliteal artery catheter placement with angiogram, selective tibioperoneal trunk catheter placement with angiogram with selective left peroneal artery catheter placement with angiogram. Left peroneal artery arthrectomy with 1.85 jet stream arthrectomy catheter, left tibial peroneal trunk arthrectomy with 1.85 mm jet stream catheter, left popliteal artery arthrectomy with 1.85 jet stream catheter, left peroneal artery angioplasty with 4 x 100 balloon, left tibial peroneal trunk angioplasty with 4 x 100 balloon, left popliteal artery angioplasty with 4 x 100 balloon. Right common femoral arteriotomy closure with a MYNX closure device. SURGEON: Dr. Jordy Bustillo. PUTTY MIXER AND APPLIER: Mali Meyers. ANESTHESIA: Local with sedation with 2 mg versed, 100 mcg of fentanyl and 10 mL of 2% lidocaine. Sedation time was from 1345 to 1415 for a total of 30 minutes. Sedation and cardiopulmonary monitoring were performed by the nurse in the room by my direct supervision. I was present for and directed the entire case. Half Way time 2.222 minutes. CONTRAST: 25 mL. HEPARIN: 6000 units. COMPLICATIONS: None. DRAINS: None. SPECIMENS: None. IMPLANTS: Right common femoral arterial MYNX closure device. INDICATION: The patient is a 72-year-old male with a nonhealing left TMA and poor arterial inflow to the left foot and was transferred for angiogram with possible angioplasty and stent. Risks, benefits, and alternative treatment options were discussed with the patient. DESCRIPTION OF PROCEDURE: The patient was taken to the angiography suite and placed supine on the angiography room table. The right common femoral artery was cannulated with a micropuncture needle after anesthetizing the overlying skin with 2% lidocaine. A catheter was eventually placed in the aorta and aortogram was performed. The catheter was pulled down to the level of the bifurcation of the iliac arteries and then iliofemoral angiogram was performed. The catheter was directed over the bifurcation and placed in the left common femoral artery and the left lower extremity angiogram was performed. The catheter was advanced into the left superficial femoral artery with angiography, left popliteal artery with angiograph, left tibioperoneal trunk with angiography and left peroneal artery with angiography. The left popliteal and tibioperoneal trunk and peroneal arteries underwent arthrectomy with a jet stream 1.85 mm catheter. Followup angiogram showed luminal irregularities and the left popliteal tibioperoneal trunk and peroneal artery were angioplastied with a 4 x 100 balloon with a followup angiogram showing good angiographic results. MYNX closure device was used to close the arteriotomy of the right common femoral artery with an additional 10 minutes of adjunctive pressure applied for hemostasis. Dressings were then applied. The patient tolerated the procedure well. All instrument, sponge and needle counts were correct at the end of the case. There were no complications. Dr. Bustillo was present for and directed the entire case. The patient was transferred to the holding unit and subsequently to the floor in stable condition. RADIOLOGIC SUPERVISION INTERPRETATION: The peroneal artery had severe atherosclerotic occlusive disease as well as the tibioperoneal trunk and popliteal artery. These underwent atherectomy with a 1.85 jet stream catheter and followup angioplasty due to luminal irregularities on followup angiography. MYNX closure device was used to close the arteriotomy in the right common femoral artery.
--- NOTE | 2017-08-14 16:55 | DSES ---
DATE OF ADMISSION: 07/30/2017 DATE OF DISCHARGE: 08/10/2017 ADMITTING DIAGNOSES: 1. Nonhealing left transmetatarsal amputation. 2. Diabetes mellitus. 3. Left superficial femoral and popliteal arterial atherosclerotic disease. 4. Left tibioperoneal arterial atherosclerotic disease. HOSPITAL COURSE: Patient was transferred from [facility] with a nonhealing transmetatarsal amputation and underwent an angiogram with atherectomy of the popliteal tibioperoneal trunk and peroneal arteries, but continued to have nonhealing of the transmetatarsal amputation (TMA). Patient underwent debridement of the TMA, which showed extensive necrosis and nonhealing and it was recommended he undergo a left below knee amputation, with which he agreed. The patient underwent a left below knee amputation with no complications, and then did well postoperatively, and is now being transferred to rehabilitation for acute rehabilitation. Patient will followup in the office in 2 weeks.
--- NOTE | 2017-08-14 17:14 | RO ---
DATE OF PROCEDURE: 08/04/2017 PREPROCEDURE DIAGNOSES: Left transmetatarsal gangrene and wound break down. Diabetes mellitus. POSTPROCEDURE DIAGNOSES: Left transmetatarsal gangrene and wound break down. Diabetes mellitus. OPERATIVE PROCEDURE: Debridement of left transmetatarsal amputation. SURGEON: Jordy Bustillo MD ORGAN PIPE MAKER METAL: None. ANESTHESIA: Monitored anesthesia care (MAC). ESTIMATED BLOOD LOSS: 20 mL IV FLUIDS: 200 mL HEPARIN: None. COMPLICATIONS: None. DRAINS: None. SPECIMENS: None. INDICATION: The patient is a 72-year-old male who underwent a transmetatarsal amputation which has been nonhealing and recently underwent angiography with atherectomy of his popliteal, tibial peroneal and peroneal arteries. The patient has improved blood flow, but he continues to have nonhealing of the left transmetatarsal amputation. The patient will undergo a debridement with possible pulse irrigation. Risks, benefits and alternative treatment options were discussed with the patient. DESCRIPTION OF PROCEDURE: The patient was prepped and draped in a standard surgical fashion. The left transmetatarsal amputation began to undergo debridement with manipulation and probing of the wound. It was noted that there was a large pocket of necrotic tissue that extended along the entire base of the plantar surface of the foot all the way down to the heel. The bone was exposed and there was a significant amount of nonviable tissue. At this point the procedure was terminated as the patient will require a below knee amputation as the debridement of the TMA would result in an extensive wound, which I do not believe would heal and the patient would require extensive wound healing and halfway management with a nonhealing wound that would eventually lead to a below knee amputation. Dressings were applied. The patient tolerated the procedure well. All instrument, sponge and needle counts were correct at the end of the case. There were no complications. Dr. Bustillo was present for and directed the entire case. The patient was transferred to the recovery room and subsequently to the floor in stable condition.
--- NOTE | 2017-08-18 11:27 | RO ---
DATE OF PROCEDURE: 08/06/2017 PREOPERATIVE DIAGNOSIS: Left foot gangrene and nonhealing transmetatarsal amputation, diabetes mellitus, femoral popliteal arterial atherosclerotic disease, tibial peroneal arterial arthrosclerotic disease. POSTOPERATIVE DIAGNOSIS: PROCEDURE: Left below knee amputation. SURGEON: Dr. Jordy Bustillo PUBLIC ADMINISTRATION TEACHER: None. ANESTHESIA: General endotracheal. ESTIMATED BLOOD LOSS: 250 mL. IV FLUIDS: 700 mL. SPECIMEN: Left lower extremity. COMPLICATIONS: None. DRAINS: None. IMPLANTS: None. INDICATION: Patient is a 72-year-old male who was transferred with a nonhealing left transmetatarsal amputation who underwent revascularization with arthrectomy and angioplasty of his left popliteal tibial peroneal trunk and peroneal arteries but continued to have nonhealing of the left transmetatarsal amputation and upon debridement of the transmetatarsal amputation it was noted that there was necrotic nonviable tissue along the entire plantar surface of the foot all the way back to the heel which necessitated a below knee amputation. Risks benefits and alternative treatment options were discussed with the patient. PROCEDURE: Patient was taken to the operating room, placed supine on the operating room table and then prepped and draped in the standard surgical fashion. The incision was made below the knee approximately 10 cm from the tibial tuberosity with a posterior flap creation. The peroneal artery was identified and noted to have strong pulsatile flow after undergoing arthrectomy. This was ligated with a #0-silk suture. The bone saw was used to transect the tibia and fibula. After which, the posterior flap was approximated to the interflap using #2-0 Vicryl suture in an interrupted fashion once hemostasis was obtained. The skin incision was then closed with bossman. Dressings were applied. Patient tolerated the procedure well. All instruments, sponge, and needle counts were correct at the end of the case. There were no complications. Dr. Bustillo was present for and directed the entire case. Patient was transferred to the recovery room, awake, alert, extubated, and in stable condition.
[2017-08-19] MEDS ORDERED: BRIL90TA PO (18:56)
[2017-08-19] MEDS ORDERED: FERR1TAB8 PO (18:56)
[2017-08-19] MEDS ORDERED: ATOR40TA75 PO (18:56)
[2017-08-19] MEDS ORDERED: [UNRECOGNIZED DRUG - OTHER] TOP (18:56)
[2017-08-19] MEDS ORDERED: FENO54TA2 PO (18:56)
[2017-08-19] MEDS ORDERED: NITR4TASL SL (18:56)
[2017-08-19] MEDS ORDERED: ASPI81CH PO (18:56)
[2017-08-19] MEDS ORDERED: TYLE325T5 PO (18:56)
[2017-08-19] MEDS ORDERED: ALFU10TA2 PO (18:56)
[2017-08-19] MEDS ORDERED: OXYC1TAB23 PO (18:56)
== END 2017-08-10 12:00 | DRG 271 ==
LOC: M MS5PR 20:39
PROVIDERS: ADMIT Surgery Vascular Surgery; ATTEND Surgery Vascular Surgery
PROC: 04CN3ZZ Extirpation of Matter from Left Popliteal Artery, Percutaneous Approach (ICD-10-PCS; 2017-07-31)
PROC: 04CU3ZZ Extirpation of Matter from Left Peroneal Artery, Percutaneous Approach (ICD-10-PCS; 2017-07-31)
PROC: 047N3ZZ Dilation of Left Popliteal Artery, Percutaneous Approach (ICD-10-PCS; 2017-07-31)
PROC: 047U3ZZ Dilation of Left Peroneal Artery, Percutaneous Approach (ICD-10-PCS; 2017-07-31)
PROC: B41DYZZ Fluoroscopy of Aorta and Bilateral Lower Extremity Arteries using Other Contrast (ICD-10-PCS; 2017-07-31)
PROC: 0YJ Anatomical Regions, Lower Extremities, Inspection (ICD-10-PCS; 2017-08-04)
PROC: 0Y6J0Z3 Detachment at Left Lower Leg, Low, Open Approach (ICD-10-PCS; principal; 2017-08-06 10:45)
DX: E11.52 Type 2 diabetes mellitus with diabetic peripheral angiopathy with gangrene (principal); I70.262 Atherosclerosis of native arteries of extremities with gangrene, left leg; E78.00 Pure hypercholesterolemia, unspecified; I10 Essential (primary) hypertension; I25.10 Atherosclerotic heart disease of native coronary artery without angina pectoris; Z79.4 Long term (current) use of insulin; Z79.899 Other long term (current) drug therapy; Z87.891 Personal history of nicotine dependence; L97.529 Non-pressure chronic ulcer of other part of left foot with unspecified severity; T87.54 Necrosis of amputation stump, left lower extremity; I70.208 Unspecified atherosclerosis of native arteries of extremities, other extremity; T87.89 Other complications of amputation stump; Y82.9 Unspecified medical devices associated with adverse incidents

== ENCOUNTER 2017-08-10 10:37 | Inpatient (IN) | payer MEDICARE ==
[~2017-08-10] VITALS: Ht 175.3 cm; Wt 76.4 kg
[~2017-08-10 10:37] MED LIST: ACET1TAB17 PO; ALFU10TA2 PO; BACITAB PO; CILO100T PO; FENO54TA2 PO; FINA5TAB2 PO; HYDR25TAB PO; INSUH10VL SC; INSULANT SC; METO50TA7 PO; NIFE15TA PO; OMEP20CA3 PO; PERC5TAB12 PO; RAMI10CA PO; RAMIPRIL 5 MG CAP PO SCH; SIMV20TA2 PO; TOPI25TA10 PO; TRAM50TA2 PO; VITA100066 PO; VITAMIN D 1,000 INTERNATIONAL UNITS TABLET PO SCH
[2017-08-10 12:20] VITALS: BP 162/72
[2017-08-10] MEDS ORDERED: DEXTROSE 50% 50 ML SYRINGE IV PRN (14:45)
[2017-08-10] MEDS ORDERED: GLUCOSE 4 GM CHEW TABLET PO PRN (14:45)
[2017-08-10] MEDS ORDERED: PERCOCET 5MG/325MG TAB PO PRN (14:45)
[2017-08-10] MEDS ORDERED: GLUCAGON FOR INJ 1 MG VIAL (J1610) SC PRN (14:45)
[2017-08-10] MEDS ORDERED: ACETAMINOPHEN TAB 650MG DOSE (2X325MG) PO PRN (14:45)
[2017-08-10] MEDS: LACTOBACILLUS ACIDOPHILUS CAP (BACID) PO SCH (17:14)
[2017-08-10] MEDS: HumaLOG INSULIN (NovoLOG) PER UNIT SC SCH ×2 (17:15→20:10)
[2017-08-10] MEDS: CILOSTAZOL 100 MG TAB (PLETAL) PO SCH (17:15)
[2017-08-10 20:00] VITALS: BP 132/62
[2017-08-10] MEDS: METOPROLOL TART 50 MG TAB PO SCH (20:10)
[2017-08-10] MEDS: TOPIRAMATE (TopAMAX) 25 MG TAB PO SCH (20:11)
[2017-08-10] MEDS: traMADol 50 MG TAB PO PRN (20:11)
[2017-08-10] MEDS: SIMVASTATIN 20 MG TAB PO SCH (20:11)
[2017-08-10] MEDS: oxyCODONE 5MG TAB PO PRN (22:11)
[2017-08-11 06:00] VITALS: BP 141/65
[2017-08-11 07:10] LABS: BASO % 0.2 % (0.0-1.0); EOS # 0.3 10^3/uL (0.0-0.50); EOS % 2.7 % (0.0-3.0); IMMATURE GRANULOCYTE % 0.5 % (0-0); LYMPH # 1.7 10^3/uL (1.5-4.5); LYMPH % 16.5 % (24.0-44.0); MEAN CORPUSCULAR VOLUME 84.6 fl (80.0-96.0); MONO # 0.8 10^3/uL (0.0-0.8); MONO % 7.7 % (0.0-5.0); NEUTROPHILS # 7.4 10^3/uL (1.8-7.7); NEUTROPHILS % 72.4 % (36.0-66.0); PLATELET COUNT, AUTOMATED 387 10^3/uL (150-450); RED CELL DISTRIBUTION WIDTH 14.5 % (11.5-14.5); WHITE BLOOD COUNT 10.2 10^3/uL (4.0-10.0)
[2017-08-11 07:37] LABS: ALBUMIN 2.2 GM/DL (3.2-5.2); ALBUMIN/GLOBULIN RATIO 0.42 (1.00-1.93); ALKALINE PHOSPHATASE 70 U/L (45-117); ALT/SGPT 8 U/L (12-78); ANION GAP 10 MEQ/L (8-16); AST/SGOT 13 U/L (7-37); BILIRUBIN,TOTAL 0.2 MG/DL (0.2-1.0); BLOOD UREA NITROGEN 20 MG/DL (7-18); CALCIUM LEVEL 8.5 MG/DL (8.8-10.2); CARBON DIOXIDE LEVEL 27 MEQ/L (21-32); CHLORIDE LEVEL 102 MEQ/L (98-107); CREATININE FOR GFR 1.08 MG/DL (0.70-1.30); GLOMERULAR FILTRATION RATE > 60.0 (>42); GLUCOSE, FASTING 189 MG/DL (83-110); POTASSIUM SERUM 3.3 MEQ/L (3.5-5.1); SODIUM LEVEL 139 MEQ/L (136-145); TOTAL PROTEIN 7.4 GM/DL (6.4-8.2)
[2017-08-11] MEDS: TOPIRAMATE (TopAMAX) 25 MG TAB PO SCH ×2 (08:14→21:03)
[2017-08-11] MEDS: FINASTERIDE 5 MG TAB PO SCH (08:14)
[2017-08-11] MEDS: traMADol 50 MG TAB PO PRN (08:14)
[2017-08-11] MEDS: METOPROLOL TART 50 MG TAB PO SCH ×2 (08:14→21:03)
[2017-08-11] MEDS: VITAMIN D 1,000 INTERNATIONAL UNITS TABLET PO SCH (08:15)
[2017-08-11] MEDS: hydroCHLOROthiazide 25 MG TAB PO SCH (08:15)
[2017-08-11] MEDS: LACTOBACILLUS ACIDOPHILUS CAP (BACID) PO SCH ×3 (08:15→18:05)
[2017-08-11] MEDS: RAMIPRIL 5 MG CAP PO SCH (08:15)
[2017-08-11] MEDS: OMEPRAZOLE 20 MG CAP PO SCH (08:15)
[2017-08-11] MEDS: CILOSTAZOL 100 MG TAB (PLETAL) PO SCH ×2 (08:15→18:04)
[2017-08-11] MEDS: LEVEMIR (INSULIN DETEMIR) 1 UNITS/0.01ML SC SCH (08:16)
[2017-08-11] MEDS: NIFEdipine 60 MG XL TAB PO SCH (08:16)
[2017-08-11] MEDS: HumaLOG INSULIN (NovoLOG) PER UNIT SC SCH ×4 (08:17→21:00)
[2017-08-11] MEDS ORDERED: POTASSIUM CHLORIDE 10 MEQ SR TABLET PO ONE (09:00)
--- NOTE | 2017-08-11 10:14 | PMRHPE ---
DATE OF ADMISSION: 08/10/2017 REASON FOR ADMISSION: Rehabilitation of left below knee amputation pre-prosthetically. Patient is status post left jwpys-tnah-eugspfaymc (BKA) on 08/07/2017. HISTORY OF THE PRESENT ILLNESS: The patient is a 72-year-old male with type 2 diabetes mellitus and peripheral vascular disease related to development of ischemia and gangrene in BLE's. He has underwent and healed a right Syme's amputation, but then developed ulcer on the left foot and had a transmetatarsal amputation and was having difficulty with breakdown of the amputation and development of a heel ulcer. Due to degree of infection, the patient was assessed by Dr. Bustillo and felt to require more definitive amputation and on 08/07/2017 a left hnads-oqse-kyayyqpfhu was performed. The patient has started in pre-prosthetic phase for the left BKA and has been highly motivated and participating well with physical therapy and occupational therapy. He was using a protective splint/orthosis on the left residual limb. The patient, who lives with his sister, needs to become modified in activities of daily living (ADL) mobility to return to their home. The gentleman is right-handed. He reports having a prosthesis for his right leg. However, will require some time before he is ready to transition to a left below-knee prosthesis and needs to learn pre-prosthetic mobility and ADL. PAST MEDICAL HISTORY: Includes type 2 diabetes mellitus, peripheral vascular disease, atherosclerotic cardiovascular disease, hypertension, hyperlipidemia, benign prostatic hypertrophy, gastroesophageal reflux disease (GERD), hypercholesterolemia. The patient has NO KNOWN DRUG ALLERGIES, and he does have coronary artery disease. MEDICATIONS ON ADMISSION: - Tylenol - Pletal - Proscar - glucagon, glucose, and dextrose per hyperglycemic protocol - hydrochlorothiazide - detemir insulin - insulin sliding scale with Humalog - lactobacillus - Lopressor - nifedipine - Prilosec - oxycodone - Altace - Zocor - Topamax - Ultram - vitamin D FAMILY HISTORY: Includes active type 2 diabetes mellitus history. SOCIAL HISTORY: The patient is a former smoker having quit greater than a year ago. Denies drinking alcohol. Denies any illicit drugs. REVIEW OF SYSTEMS: Includes left leg pain. Otherwise, negative review of systems. PHYSICAL EXAMINATION: The patient is a 5 foot 9, 80.6 kg, 72-year-old male, who is alert, well-oriented and in very mild musculoskeletal distress with a left BKA and right Syme's amputation, the right Syme's having healed, the left BKA in early postoperative dressings with moderate BKA leg edema. Patient with his protective orthosis on. Vital signs: Temperature is 98.2, blood pressure 162/72, pulse 79, respirations 18, and pulse oximetry 98%. HEENT is normocephalic, atraumatic. Patient with extraocular motions intact. Speech is clear, coherent and appropriate. Hearing is good. Oropharynx is without significant lesion. Neck is supple. Lungs are clear in all allen to auscultation. Coronary shows a regular rate and rhythm with normal S1, S2, without S3, S4 , murmurs or rubs. Abdomen is benign. Normal bowel sounds in all quadrants. Extremities: Intact bilateral upper extremities for strength and motion. Right lower extremity with healed and somewhat calloused Syme's amputation, left with the moderate distance left BKA. Neurologically, patient is alert and oriented times four. Speech is clear, coherent and appropriate. Affect is pleasant and cooperative. Memory appears to be intact. Sensory motor is grossly intact, though patient with some distal sensory loss, consistent with his amputation. ASSESSMENT/PLAN: Diagnosis #1: Rehabilitation of left cyxos-idmx-oxbcvqyiqr pre-prosthetically. Will continue to use the protective orthosis and start patient on a program of physical and occupational therapy to learn mobility, just use Syme's prosthesis and adaptive equipment. Patient will be followed for this by physical therapy (PT), occupational therapy (OT), rehabilitation nursing, podiatry, and Dr. Bustillo of vascular surgery will continue to participate in care. Diagnosis #2: Type 2 diabetes mellitus. We will have him continue with before food and nightly blood sugar checks with a sliding scale and baseline detemir insulin 55 units each morning with hypoglycemic protocol in place. Medicine consultation has been sent. Diagnosis #3: Atherosclerotic cardiovascular disease including peripheral vascular disease, coronary artery disease, hypertension, and hyperlipidemia. We will go ahead and continue patient on hydrochlorothiazide, metoprolol tartrate, nifedipine XL, ramipril, simvastatin, and Pletal. Diagnosis #4: Benign prostatic hypertrophy (BPH). Patient will continue on finasteride. Diagnosis #5: Neurogenic pain related to diabetes. Patient will continue on topiramate. In addition for pain, patient will have oxycodone and tramadol for left BKA pain as well as neurogenic pain related to his diabetes. POSTADMISSION PHYSICIAN EVALUATION: Patient is consistent with preadmission screening and I feel will do well in pre-prosthetic training with physical and occupational therapy and should be able to participate without problem in 3 hours of therapy per day. I do anticipate him having a good prognosis for being able to return home and anticipate a length of stay of 10 days. Time spent on chart review, history and physical, and documentation greater than 70 minutes. [place]
--- NOTE | 2017-08-11 12:26 | CR.PDOC ---
[facility] Consultation Consultation CONSULTATION REPORT FOR: Dr Velazquez REASON FOR CONSULTATION: Medical Management DATE OF VISIT: 08/11/17 ATTENDING: Dr. Jesus Campos Vascular surgeon. Dr Bustillo. HPI: 72year oldM status post BKA as per Dr. Bustillo 08/05/17. Patient is transferred to the care of ARU, Dr Velazquez, 08/10/17. The patient was noted to have a low potassium level, supplement has been ordered. Patient is noted to be anemic, 2 units of packed red blood cells have been requested. The patient has been out of bed with therapy this morning and overall states he is feeling well. Therapy did note some dizziness and weakness with ADLs. Denies any fevers, chills, Headache, Chest Pain, Shortness of breath, cough, palpitations, abdominal pain, N/V/D or changes in bowel or bladder habits. PMHx: CAD Hypertension IDDM Dyslipidemia PVD BPH GERD PSHX: Left transmetatarsal imitation Left BKA 08/05/17. Dr Bustillo. FAMILY HISTORY: Includes active type 2 diabetes mellitus history. SOCIAL HISTORY: The patient is a former smoker having quit greater than a year ago. Denies drinking alcohol. Denies any illicit drugs. ROS: As noted in HPI, otherwise 11pt ROS of systems reviewed and unremarkable. PE: GEN: 72yoM, appears stated age. Well-nourished, well developed. No acute distress. Alert and oriented x 3. Pleasant, interactive. HEENT: Normocephalic, atraumatic. Sclera are nonicteric. Conjunctiva without injection. Nose midline. No facial asymmetry. Moist mucous membranes. Pharynx pink and moist, no cobblestoning. Neck supple, trachea midline. No lymphadenopathy or thyromegaly appreciated. CHEST: Regular rate and rhythm, +S1, +S2 LUNGS: Clear to auscultation bilaterally. No wheezes, rales, or rhonchi. Breathing appears symmetric and easy. ABD: Round, soft, non-tender, non-distended. +Bowel sounds throughout. No rebound or guarding. No costovertebral angle tenderness. EXT: Left BKA. No lower extremity edema appreciated. SKIN: . No rashes. NEURO: No focal deficits appreciated. A&P: 72year old M status post BKA as per Dr. Bustillo 08/05/17. Patient is transferred to the care of ARU, Dr Velazquez, 08/10/17. 1. S/P Left BKA. Management as per vascular surgery, Dr Bustillo. PT/OT as per ARU, Dr Velazquez. Pain control as per ARU. Bowel care as per ARU. DVT prophylaxis as per ARU. 2. Peripheral vascular disease. Patient remains on Pletal. Management as per vascular surgery. 3. IDDM. Consistent carbohydrate diet. Levemir 55 units a.m. SSI. . 4. HTN. Continue with HCTZ/nifedipine/ramipril. 5. HLD. Continue Zocor. 6. BPH. Continue Proscar. 7. GERD. Continue Prilosec. 8. Acute blood loss anemia. Hemoglobin noted to be 7.1 this a.m. Consent on chart for blood products. 2 units PRBCs ordered for today as per [facility]U attending. Add iron studies, B12, folate. Stool occult blood. Monitor. 9. Hypokalemia. Status post oral supplement. Add magnesium level. Monitor with labs in a.m. 10. CAD. Continue metoprolol/statin. Thank you for your consultation. We will continue to follow along with you. Vital Signs/I&O Vital Signs Date Time Temp Pulse Resp B/P (MAP) Pulse Ox O2 Delivery O2 Flow Rate FiO2 08/11/17 08:14 18 08/11/17 08:14 78 141/65 08/11/17 06:00 97.9 99 Room Air I&O- Last 24 Hours up to 6 AM 08/12/17 06:00 Intake Total 220 ml Output Total 600 ml Balance -380 ml Laboratory Data Labs 24H Laboratory Tests 2 08/10/17 17:09: Bedside Glucose (Misc Panel) 355H 08/10/17 19:59: Bedside Glucose (Misc Panel) 245H 08/11/17 06:26: Urine Appearance CLEAR, Urine Color YELLOW, Urine pH 6.0, Urine Specific [place] 1.010, Urine Protein 1+H, Urine Glucose (UA) 1+H, Urine Ketones NEGATIVE , Urine Urobilinogen 0.2, Urine Bilirubin NEGATIVE, Urine Leukocyte Esterase NEGATIVE, Urine Blood 1+H, Urine Nitrite NEGATIVE, Urine WBC (Auto) 1, Urine RBC (Auto) 8H, Urine Hyaline Casts (Auto) 0, Urine Bacteria (Auto) 1+H, Urine Squamous Epithelial Cells 0, Urine Mucus (Auto) SMALL, Urine Sperm (Auto) 08/11/17 07:01: Immature Granulocyte % (Auto) 0.5H, White Blood Count 10.2H, Red Blood Count 2.54L, Hemoglobin 7.1L, Hematocrit 21.5L, Mean Corpuscular Volume 84.6, Mean Corpuscular Hemoglobin 28.0, Mean Corpuscular Hemoglobin Concent 33.0, Red Cell Distribution Width 14.5, Platelet Count 387, Neutrophils (%) (Auto) 72.4H, Lymphocytes (%) (Auto) 16.5L, Monocytes (%) (Auto) 7.7H, Eosinophils (%) (Auto) 2.7, Basophils (%) (Auto) 0.2, Neutrophils # (Auto) 7.4, Lymphocytes # (Auto) 1.7, Monocytes # (Auto) 0.8, Eosinophils # (Auto) 0.3, Basophils # (Auto) 0.0, Immature Granulocyte # (Auto) 0.1H, Nucleated Red Blood Cells % (auto) 0.0, Anion Gap 10, Glomerular Filtration Rate > 60.0, Blood Urea Nitrogen 20H, Creatinine 1.08, Sodium Level 139, Potassium Level 3.3L, Chloride Level 102, Carbon Dioxide Level 27, Calcium Level 8.5L, Aspartate Amino Transf (AST/SGOT) 13, Alanine Aminotransferase (ALT/SGPT) 8L, Alkaline Phosphatase 70, Total Bilirubin 0.2, Total Protein 7.4, Albumin 2.2L, Albumin/Globulin Ratio 0.42L 08/11/17 11:42: Bedside Glucose (Misc Panel) 335H CBC/BMP Laboratory Tests 08/11/17 07:01 Red Blood Count 2.54 L, Mean Corpuscular Volume 84.6, Mean Corpuscular Hemoglobin 28.0, Mean Corpuscular Hemoglobin Concent 33.0, Red Cell Distribution Width 14.5, Neutrophils (%) (Auto) 72.4 H, Lymphocytes (%) (Auto) 16.5 L, Monocytes (%) (Auto) 7.7 H, Eosinophils (%) (Auto) 2.7, Basophils (%) ( Auto) 0.2, Neutrophils # (Auto) 7.4, Lymphocytes # (Auto) 1.7, Monocytes # (Auto ) 0.8, Eosinophils # (Auto) 0.3, Basophils # (Auto) 0.0, Calcium Level 8.5 L, Aspartate Amino Transf (AST/SGOT) 13, Alanine Aminotransferase (ALT/SGPT) 8 L, Alkaline Phosphatase 70, Total Bilirubin 0.2, Total Protein 7.4, Albumin 2.2 L Allergies Coded Allergies: No Known Allergies (Unverified , 07/30/17) Home Medications Scheduled Alfuzosin Hydrochloride (Alfuzosin HCl ER) 10 Mg Tab, 10 MG PO DAILY, (Reported) Cholecalciferol (Vitamin D) 1,000 Unit Tab, 1,000 UNIT PO DAILY, (Reported) Cilostazol (Cilostazol) 100 Mg Tab, 100 MG PO BID, (Reported) Fenofibrate (Fenofibrate) 54 Mg Tab, 54 MG PO DAILY, (Reported) Finasteride (Finasteride) 5 Mg Tab, 5 MG PO DAILY, (Reported) Hydrochlorothiazide (Hydrochlorothiazide) 25 Mg Tab, 25 MG PO DAILY, (Reported) Insulin Aspart (Novolog) 100 U/Ml Inj, 1 DOSE SC AC, (Reported) Insulin Glargine (Lantus) 1 Units/0.01 Ml Susp, 55 UNITS SC DAILY, (Reported) Lactobacillus Acidophilus (Bacid) 1 Tab Tab, 1 TAB PO WM, (Reported) Metoprolol Tartrate (Metoprolol Tartrate) 50 Mg Tab, 50 MG PO BID, (Reported) Nifedipine (Nifedical Xl) 60 Mg Tab, 60 MG PO DAILY, (Reported) Omeprazole (Omeprazole) 20 Mg Cap, 20 MG PO DAILY, (Reported) Ramipril (Ramipril) 10 Mg Cap, 10 MG PO DAILY, (Reported) Simvastatin (Simvastatin) 20 Mg Tab, 20 MG PO QHS, (Reported) Topiramate (Topiramate) 25 Mg Tab, 25 MG PO BID, (Reported) Scheduled PRN Acetaminophen (Acetaminophen) 325 Mg Tab, 650 MG PO Q6H PRN for PAIN, (Reported) Oxycodone/Acetaminophen (Percocet 5-325 mg) 1 Tab Tab, 1 TAB PO BID PRN for PAIN , (Reported) Tramadol HCl (Tramadol HCl) 50 Mg Tab, 50 MG PO Q6H PRN for PAIN, (Reported) Henna Thomas Aug 11, 2017 12:26
[2017-08-11] MEDS: oxyCODONE 5MG TAB PO PRN ×2 (13:24→21:02)
[2017-08-11 13:58] LABS: FERRITIN 249 NG/ML (26-388); FOLATE 9.6 NG/ML (>5.4); MAGNESIUM LEVEL 1.7 MG/DL (1.8-2.4); PERCENT SATURATION 17.7 % (19.7-50.0); TOTAL IRON BINDING CAPACITY 186 UG/DL (250-450); VITAMIN B12 LEVEL > 2000 PG/ML (247-911)
[2017-08-11 14:00] VITALS: BP 121/56
[2017-08-11] MEDS ORDERED: FUROSEMIDE 20 MG TAB PO ONE (17:30)
--- NOTE | 2017-08-11 18:18 | IPNPDOC ---
PM&R Progress Note Rate Clerk Progress Note DATE OF SERVICE: 08/11/17 DATE OF ADMISSION: Aug 10, 2017 at 12:07 INPATIENT REHABILITATION ADMISSION DAY: #2 SUBJECTIVE: The patient is a 72-year-old male with type 2 diabetes mellitus and peripheral vascular disease related to development of ischemia and gangrene in BLE's. He has underwent and healed a right Syme's amputation, but then developed ulcer on the left foot and had a transmetatarsal amputation and was having difficulty with breakdown of the amputation and development of a heel ulcer. Due to degree of infection, the patient was assessed by Dr. Bustillo and felt to require more definitive amputation and on a left [id number] was performed. The patient has started in pre-prosthetic phase for the left BKA and has been highly motivated and participating well with physical therapy and occupational therapy. He was using a protective splint/orthosis on the left residual limb. The patient, who lives with his sister, needs to become modified in activities of daily living ( ADL) mobility to return to their home. The gentleman is right-handed. He reports having a prosthesis for his right leg. However, will require some time before he is ready to transition to a left below-knee prosthesis and needs to learn pre-prosthetic mobility and ADL. Patient reports being tired and some residual limb pain today. ALLERGIES: See Below MEDICATIONS: Reviewed, see below. OBJECTIVE: VITAL SIGNS: Please see below. PHYSICAL EXAMINATION: GENERAL: Elderly male with right Symes and now a new left BKA. Patient is alert and well oriented and pleasant and cooperative. HEENT: Normocephalic/atraumatic. CARDIOVASCULAR: Regular rate and rhythm with normal S1-S2. 2/4 bilateral radial pulses. LUNGS: All allen clear to auscultation. ABDOMEN: Benign with normal bowel sounds in all quadrants. NEUROLOGICAL: Alert and oriented 4. Speech is clear coherent appropriate. Memory is grossly intact. Patient with a little bit of anxiousness. Motor grossly intact in bilateral upper and right lower extremity except for the foot. Patient with some guarding and tightness in the left knee. SKIN: Healing left BKA incision. LABORATORY DATA: Reviewed. Please see below. MICROBIOLOGY: Please see below. IMAGING: No new imaging. DVT prophylaxis ordered?: None. ASSESSMENT AND PLAN: 1. Rehabilitation of left BKA preprostatic phase: At this time patient needs keep weight off the distal left lower extremity residual limb and proceed with knee range of motion and skin desensitization. Patient also needs to adjust to change in by habitus and his balance with barring adaptive mobility wheelchair and walker. Patient needs to have family bring in his Symes prosthetic to facilitate training. Currently pain seems to be under reasonable control. At this time I feel patient will require approximately 10 days to learn the mobility and ADLs to function at home. Please see initial therapy evaluations attached below. 2. Severe anemia: H&H this morning was 7.1 at 21.5% I have discussed this with the patient gotten consent for transfusion with 2 units of packed red blood cells. Patient has been participating as tolerated with physical and occupational therapy doing their initial evaluations. Vital signs appear to be stable and repeat CBC occurred in the morning. 3. Nutrition: Albumin is notably reduced at 2.2 so we will need to focus patient on appropriate nutrition to heal his new amputation. 4. Type 2 diabetes mellitus: Since admission patient blood sugar have been running from the mid 100s to mid 300s. We will work to try and get better control of this. 5. Urinalysis: No signs of infections however findings consistent with some diabetic affects showing 1+ blood 1+ protein 1+ glucose. While there is 1+ bacteria there is no nitrites and leukoesterase to suggest an active infection. TIME SPENT: Chart Review, examination and documentation require greater than 25 minutes. Patient: Dewey Obando : 1945 Age/Sex: 72/M Unit#: [id number] Room/Bed: [facility]/01 User: Candice Millard OT [facility] Date: 08/11/17 16:50 Type: OT Lower Extremity Post Op Sarah... Time In * 08:00 Time Out * 09:30 OT Treatment Time-Minutes * 90 mins Unit * Acute Inpatient Rehab Primary Diagnosis * L BKA History of Present Illness * Pt is s/p L BKA on 08/07/17 secondary to peripheral vascular disease, presents to ARU for intensive rehab. Subjective * Pt received for session supine in bed, pleasant and agreeable to OT session. Weight Bearing * NWB Left Other Precautions * LLE orthosis on AAT when oob Relevant Impairments * Other Other Relevant Impairments * Pt is also s/p amputation of R metatarsals and has RLE prosthesis. Patient was Independent ADL's * Yes Patient ADL's Comment * Pt was independent with all basic ADLs and meal prep. Other Assist Patient Required * Pt lives with his sister who performs home management and assists with meal prep. Pain: Start of Session * 7 Pain Assessment Label * Left Stump * Pain Note Pt reported 7/10 pain in L residual limb Living Quarters * House Home Has * Shower * Walker * Shower Chair * Wheelchair Home Needs * Grab Bars Living Situation * Family Other Home Accessibility Comments * Pt lives with sister. Pt utilized grab bars when performing toilet transfer and would benefit from placement of grab bars near toilet in the home. Pt declines use of commode. Supine to Sit * Standby Assist Sit to Supine * Standby Assist Toilleting * Minimum Assist Toilet Transfer * Standby Assist Dressing-Upper Body * Standby Assist Dressing-Lower Body * Moderate Assist Bathing * Contact Guard Assist ADL Status Note * Pt performed supine>sit to EOB with SBA, HOB flat and no use of bed rail. Pt performed spt to wc with RW with CGA for safety. Pt self propelled wc into bathroom and performed transfer wc<> standard toilet using grab bar for support with SBA. Pt performed toilet hygiene s/p bm with min A for thoroughness. While seated in wc, pt bathed upper and lower body with CGA in standing to wash buttocks. Pt donned/doffed LLE orthosis and RLE prosthesis x 2 during session with SBA to ensure correct alignment of LLE orthosis. Pt donned t-shirt with s/u. Pt required assistance to don brief and pants over feet and up to waist. Pt performed grooming tasks in sitting at sink independently. Orientation * Person * Place * Date Memory * Intact Follows Commands * Intact Safety Awareness * Intact Home Safety Status * Not Safe Patient Not Safe for Discharge Due to * Pt with new BKA functioning slightly below baseline for ADLs, would benefit from training on use of adaptive strategies. Discharge Recommendations * Home w/services Other Discharge Recommendations * oob for meals, encourage participation with self care. Occupational Therapy Evaluation Notes * Pt presents with minimally decreased independence with ADLs related to L BKA and would benefit from restorative OT services to provide teaching on adaptive strategies and AE as necessary to maximize independence prior to return home. Skilled OT appropriate for how many times per week * 5 times per week Treatment plan * ADL * Functional activity * Kinetic activity * Pt/Family education * Neuromuscular re-educate * Functional transfers Patient Education Completed * Yes Patient: Dewey Obando : 1945 Age/Sex: 72/M Unit#: [id number] Room/Bed: [place] [address] User: Olga Wharton PT PT Date: 08/11/17 17:22 Type: PT Evaluation Time In * 10:10 Time Out * 11:05 PT Treatment Time-Minutes * 55 mins Physical Therapy Evaluation * Initial Type of Therapy Provided * Individual Diagnosis * Left BKA, Right healed Symes Amp. Doctor's Order * Evaluation & Treatment Doctor's Order Detail * Eval and Tx 1.5 Hours per day. 5 days per week. History of Present Illness * Pt states he bumped he foot and had been doctoring for several months to reverse the infection and safe his foot. Pt states earlier this month the infection moved into the heal and he decided amputation would be the best option to get him feeling better and back home. Subjective * Pt was in good spirits upon entering the room and was willing to participate. It is noted that pts H&H is significantly low and he is symptomatic. OOB activity is prohibited per MD this session and will be completed between transfusions during the day. Pt is agreeable. Precautions * Fall * NWB Other Precautions * LLE Unit * Acute Inpatient Rehab Prior to Admission Pt Independent with Gait * Yes Prior to Admission Patient Lives * With Family Prior to Admission Pt Lives with Comment * sister Prior to Admission Assistive Devices * Crutches * Wheelchair Prior to Admission Pt Requires Assist with * Meals * Cleaning * Transportation Prior to Admission Other Assist Pt Requires * Pt states that his sister has been helping with these things Pain Comment * Pt does not quantify pain today. He does note that some pain is present however states he has had pain medication and is doing ok. Upper Extremity ROM Label * Bilateral * Upper Extremity ROM Comment See OT eval Lower Extremity ROM Label * Right Hip Knee Ankle * Active or Passive Active * ROM Within Normal Limits Within Functional Limits * Lower Extremity ROM Comment LLE hip ROM WNL LLE knee slighly contracted. bed locked out to eliminate flexion and education about pillows under knee given. Pt has IPOP present for use to increase extension. Tone Within Normal Limits * Yes Upper Extremity Strength Label * Bilateral * Upper Extremity Status Strength Within Funct. Limits Lower Extremity Strength Label * Right * Lower Extremity Status Strength 5/5 * Lower Extremity Status Strength Comment Left not tested at this time as it is NWBing. Transfer: Supine to Sit * Not Tested Transfer: Sit to Supine * Not Tested Transfer: Rolling * Modified Independent Transfer: Sit to Stand * Not Tested Transfer: Stand to Sit * Not Tested Transfer: Bed to Chair * Not Tested Transfer: Chair to Bed * Not Tested Transfer: Toilet/Commode * Not Tested Transfer Comment * Pt limited to in bed mobility today only Ambulation Level of Assist * Not Tested Gait Deviations * Not tested at this time due to blood levels. Wheelchair Mobility Level of Assist * Not Tested Stair Skills Required * No A. Roll Left and Right: * 06.Independent B. Sit to Lying: * 88.Not Attempted C. Lying to Sitting on Side of Bed: * 88.Not Attempted D. Sit to Stand: * 88.Not Attempted E. Chair/Rdq-pc-Sisfx Transfer: * 88.Not Attempted F. Toilet Transfer: * 88.Not Attempted G. Car Transfer: * 88.Not Attempted H. Does the patient walk?: * 1. No, indicated Q. Does the patient use a w/c (other than just transport): * 0. No Sitting: Static * G Sitting: Dynamic * G Functional Balance Comment * Sitting observed up in bed without HOB assist. Good balance noted. Living Quarters * House Ramp: Outside * Yes Equipment at Home * Grab Bars * Wheelchair * Crutches Equipment Needs for Home * Walker Hearing * Intact Orientation * Person * Place * Date Memory * Intact Follows Commands * Intact Safety Awareness * Intact Family Needs Identified * Education Coordination * Within Normal Limits Home Safety Status * Not Safe Patient Not Safe for Discharge Due to * Pt would benefit from gait training so that he is able to enter his bathroom as this is the only room that is not w/c accessable in his home. Other Home Safety Status Issues * Bathroom door is too narrow for w/c to fit through. Discharge Recommendations * Home w/services Physical Therapy Evaluation Note * Pt was left supine in bed t/o session per MD due to H&H being low. Pt was willing to complete mobility in bed and is noted to be strong and have previously learned stand pivot transfers. Pt was able to demonstrate ability to don and dof braces today. He was also given extensive education about the importance of hip and knee extension. Pt states increased understanding and was agreeable to placing lock on legs of bed to keep them from moving into flexion. Nursing also educated. See Acute In-Patient Rehab POC * Yes PT Interventions * Bed Mobility * Safety/Precautions * Pt./Family Education * D/C Needs Patient Education Completed * Yes Allergies Coded Allergies: No Known Allergies (Unverified , 07/30/17) Vital Signs Vital Signs Date Time Temp Pulse Resp B/P (MAP) Pulse Ox O2 Delivery O2 Flow Rate FiO2 08/11/17 14:00 98.6 79 18 121/56 (77) 96 Room Air Laboratory Data CBC/BMP Laboratory Tests 08/11/17 07:01 Red Blood Count 2.54 L, Mean Corpuscular Volume 84.6, Mean Corpuscular Hemoglobin 28.0, Mean Corpuscular Hemoglobin Concent 33.0, Red Cell Distribution Width 14.5, Neutrophils (%) (Auto) 72.4 H, Lymphocytes (%) (Auto) 16.5 L, Monocytes (%) (Auto) 7.7 H, Eosinophils (%) (Auto) 2.7, Basophils (%) ( Auto) 0.2, Neutrophils # (Auto) 7.4, Lymphocytes # (Auto) 1.7, Monocytes # (Auto ) 0.8, Eosinophils # (Auto) 0.3, Basophils # (Auto) 0.0, Calcium Level 8.5 L, Aspartate Amino Transf (AST/SGOT) 13, Alanine Aminotransferase (ALT/SGPT) 8 L, Alkaline Phosphatase 70, Total Bilirubin 0.2, Total Protein 7.4, Albumin 2.2 L Labs 24H Laboratory Tests 2 08/10/17 19:59: Bedside Glucose (Misc Panel) 245H 08/11/17 06:26: Urine Appearance CLEAR, Urine Color YELLOW, Urine pH 6.0, Urine Specific [place] 1.010, Urine Protein 1+H, Urine Glucose (UA) 1+H, Urine Ketones NEGATIVE , Urine Urobilinogen 0.2, Urine Bilirubin NEGATIVE, Urine Leukocyte Esterase NEGATIVE, Urine Blood 1+H, Urine Nitrite NEGATIVE, Urine WBC (Auto) 1, Urine RBC (Auto) 8H, Urine Hyaline Casts (Auto) 0, Urine Bacteria (Auto) 1+H, Urine Squamous Epithelial Cells 0, Urine Mucus (Auto) SMALL, Urine Sperm (Auto) 08/11/17 07:01: Immature Granulocyte % (Auto) 0.5H, White Blood Count 10.2H, Red Blood Count 2.54L, Hemoglobin 7.1L, Hematocrit 21.5L, Mean Corpuscular Volume 84.6, Mean Corpuscular Hemoglobin 28.0, Mean Corpuscular Hemoglobin Concent 33.0, Red Cell Distribution Width 14.5, Platelet Count 387, Neutrophils (%) (Auto) 72.4H, Lymphocytes (%) (Auto) 16.5L, Monocytes (%) (Auto) 7.7H, Eosinophils (%) (Auto) 2.7, Basophils (%) (Auto) 0.2, Neutrophils # (Auto) 7.4, Lymphocytes # (Auto) 1.7, Monocytes # (Auto) 0.8, Eosinophils # (Auto) 0.3, Basophils # (Auto) 0.0, Immature Granulocyte # (Auto) 0.1H, Nucleated Red Blood Cells % (auto) 0.0, Anion Gap 10, Glomerular Filtration Rate > 60.0, Blood Urea Nitrogen 20H, Creatinine 1.08, Sodium Level 139, Potassium Level 3.3L, Chloride Level 102, Carbon Dioxide Level 27, Calcium Level 8.5L, Aspartate Amino Transf (AST/SGOT) 13, Alanine Aminotransferase (ALT/SGPT) 8L, Alkaline Phosphatase 70, Total Bilirubin 0.2, Total Protein 7.4, Albumin 2.2L, Albumin/Globulin Ratio 0.42L 08/11/17 11:42: Bedside Glucose (Misc Panel) 335H 08/11/17 12:57: Magnesium Level 1.7L, Iron Level 33L, Total Iron Binding Capacity 186L, Transferrin % Saturation 17.7L, Ferritin 249, Vitamin B12 Level > 2000H, Folate 9.6 08/11/17 17:18: Bedside Glucose (Misc Panel) 244H Current Medications Current Medications Current Medications Acetaminophen (Tylenol Tab) 650 mg Q6HP PRN PO PAIN OR FEVER; Start 08/10/17 at 14:45; Stop 09/09/17 at 14:44 Cilostazol (Pletal) 100 mg BID@0730,1730 PO Last administered on 08/11/17t 08: 15; Start 08/10/17 at 17:30; Stop 09/09/17 at 17:29 Dextrose (Dextrose 50%) 25 ml ASDIRECTED PRN IV SEE LABEL COMMENTS; Start at 14:45; Stop 09/09/17 at 14:44 Finasteride (Proscar) 5 mg DAILY PO Last administered on 08/11/17 08:14; Start 08/11/17 at 09:00; Stop 09/10/17 at 08:59 Glucagon (Glucagon) 1 mg ASDIRECTED PRN SC SEE LABEL COMMENTS; Start 08/10/17 at 14:45; Stop 09/09/17 at 14:44 Glucose (Glucose) 16 GM ASDIRECTED PRN PO SEE LABEL COMMENTS; Start 08/10/17 at 14:45; Stop 09/09/17 at 14:44 Hydrochlorothiazide (Hydrodiuril) 25 mg DAILY PO Last administered on 08:15; Start 08/11/17 at 09:00; Stop 09/10/17 at 08:59 Insulin Detemir (Levemir Insulin) 55 units QAM SC Last administered on 08:16; Start 08/11/17 at 09:00; Stop 09/10/17 at 08:59 Insulin Human Lispro (HumaLOG INSULIN) See Protocol Table AC SC Last administered on 08/11/17 11:51; Start 08/10/17 at 17:30; Stop 09/09/17 at 17: 29 Insulin Human Lispro (HumaLOG INSULIN) See Protocol Table QHS SC ; Start at 21:00; Stop 09/09/17 at 20:59 Lactobacillus Acidophilus (Bacid) 1 ea WM PO Last administered on 08/11/17 11 :51; Start 08/10/17 at 18:00; Stop 09/09/17 at 17:59 Metoprolol Tartrate (Lopressor) 50 mg BID PO Last administered on 08/11/17 08 :14; Start 08/10/17 at 21:00; Stop 09/09/17 at 20:59 Nifedipine (Procardia Xl) 60 mg DAILY PO Last administered on 08/11/17 08:16 ; Start 08/11/17 at 09:00; Stop 09/10/17 at 08:59 Omeprazole (PriLOSEC) 20 mg DAILY PO Last administered on 08/11/17 08:15; Start 08/11/17 at 09:00; Stop 09/10/17 at 08:59 Oxycodone HCl (Roxicodone, Oxyir) 5 mg Q4HP PRN PO SEVERE PAIN (PS 8-10) Last administered on 08/11/17 13:24; Start 08/10/17 at 14:45; Stop 08/17/17 at 14 :44 Oxycodone/ Acetaminophen (Percocet 5mg/ 325mg Tablet) 1 tab Q4HP PRN PO MODERATE PAIN (PS 5-7); Start 08/10/17 at 14:45; Stop 08/17/17 at 14:44; Status Cancel Potassium Chloride (Micro-K Extencaps) 10 meq DAILY PO ; Start 08/12/17 at 09: 00; Stop 08/19/17 at 10:00 Ramipril (Altace) 10 mg DAILY PO ; Start 08/10/17 at 09:00; Stop 09/09/17 at 08 :59; Status Cancel Ramipril (Altace) 10 mg DAILY PO Last administered on 08/11/17 08:15; Start 08/11/17 at 09:00; Stop 09/10/17 at 08:59 Simvastatin (Zocor) 20 mg QHS PO Last administered on 08/10/17 20:11; Start 08/10/17 at 21:00; Stop 09/09/17 at 20:59 Topiramate (TopAMAX) 25 mg BID PO Last administered on 08/11/17 08:14; Start 08/10/17 at 21:00; Stop 09/09/17 at 20:59 Tramadol HCl (Ultram) 50 mg Q4HP PRN PO MODERATE/SEVERE PAIN (PS 5-10) Last administered on 08/11/17 08:14; Start 08/10/17 at 15:30; Stop 08/17/17 at 15 :29 Vitamin D (Vitamin D) 1,000 units DAILY PO ; Start 08/10/17 at 09:00; Stop at 08:59; Status Cancel Vitamin D (Vitamin D) 1,000 units DAILY PO Last administered on 08/11/17 08: 15; Start 08/11/17 at 09:00; Stop 09/10/17 at 08:59 SHU REEVES MD Aug 11, 2017 18:18
[2017-08-11 20:00] VITALS: BP 137/69
[2017-08-11] MEDS: SIMVASTATIN 20 MG TAB PO SCH (21:02)
[2017-08-12 06:00] VITALS: BP 158/80
[2017-08-12 07:30] LABS: MEAN CORPUSCULAR VOLUME 82.6 fl (80.0-96.0); PLATELET COUNT, AUTOMATED 425 10^3/uL (150-450); RED CELL DISTRIBUTION WIDTH 14.5 % (11.5-14.5)
[2017-08-12 07:33] LABS: ANION GAP 9 MEQ/L (8-16); BLOOD UREA NITROGEN 19 MG/DL (7-18); CALCIUM LEVEL 8.6 MG/DL (8.8-10.2); CARBON DIOXIDE LEVEL 27 MEQ/L (21-32); CHLORIDE LEVEL 106 MEQ/L (98-107); GLOMERULAR FILTRATION RATE > 60.0 (>42); GLUCOSE, FASTING 196 MG/DL (83-110); MAGNESIUM LEVEL 1.9 MG/DL (1.8-2.4); POTASSIUM SERUM 3.8 MEQ/L (3.5-5.1); SODIUM LEVEL 142 MEQ/L (136-145)
[2017-08-12 07:35] LABS: ALBUMIN 2.2 GM/DL (3.2-5.2); ALBUMIN/GLOBULIN RATIO 0.42 (1.00-1.93); ALKALINE PHOSPHATASE 79 U/L (45-117); ALT/SGPT 10 U/L (12-78); ANION GAP 9 MEQ/L (8-16); AST/SGOT 12 U/L (7-37); BILIRUBIN,TOTAL 0.3 MG/DL (0.2-1.0); BLOOD UREA NITROGEN 20 MG/DL (7-18); CALCIUM LEVEL 8.9 MG/DL (8.8-10.2); CARBON DIOXIDE LEVEL 27 MEQ/L (21-32); CHLORIDE LEVEL 105 MEQ/L (98-107); CREATININE FOR GFR 1.03 MG/DL (0.70-1.30); GLOMERULAR FILTRATION RATE > 60.0 (>42); GLUCOSE, FASTING 196 MG/DL (83-110); POTASSIUM SERUM 3.6 MEQ/L (3.5-5.1); SODIUM LEVEL 141 MEQ/L (136-145); TOTAL PROTEIN 7.5 GM/DL (6.4-8.2)
[2017-08-12] MEDS: CILOSTAZOL 100 MG TAB (PLETAL) PO SCH ×2 (07:43→17:13)
[2017-08-12] MEDS: POTASSIUM CHLORIDE 10 MEQ SR TABLET PO SCH (07:44)
[2017-08-12] MEDS: NIFEdipine 60 MG XL TAB PO SCH (07:44)
[2017-08-12] MEDS: VITAMIN D 1,000 INTERNATIONAL UNITS TABLET PO SCH (07:44)
[2017-08-12] MEDS: LACTOBACILLUS ACIDOPHILUS CAP (BACID) PO SCH ×3 (07:44→17:13)
[2017-08-12] MEDS: FINASTERIDE 5 MG TAB PO SCH (07:44)
[2017-08-12] MEDS: RAMIPRIL 5 MG CAP PO SCH (07:45)
[2017-08-12] MEDS: METOPROLOL TART 50 MG TAB PO SCH ×2 (07:45→20:00)
[2017-08-12] MEDS: hydroCHLOROthiazide 25 MG TAB PO SCH (07:46)
[2017-08-12] MEDS: OMEPRAZOLE 20 MG CAP PO SCH (07:46)
[2017-08-12] MEDS: HumaLOG INSULIN (NovoLOG) PER UNIT SC SCH ×4 (07:46→20:01)
[2017-08-12] MEDS: TOPIRAMATE (TopAMAX) 25 MG TAB PO SCH ×2 (07:47→20:01)
[2017-08-12] MEDS: LEVEMIR (INSULIN DETEMIR) 1 UNITS/0.01ML SC SCH (07:47)
[2017-08-12] MEDS ORDERED: FLEET ENEMA PR PRN (10:45)
[2017-08-12 14:00] VITALS: BP 133/64
--- NOTE | 2017-08-12 14:54 | IPNPDOC ---
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 He has underwent and healed a right Syme's amputation, but then developed ulcer on the left foot and had a transmetatarsal amputation and was having difficulty with breakdown of the amputation and development of a heel ulcer. Due to degree of infection, the patient was assessed by Dr. Bustillo and felt to require more definitive amputation and on a left [id number] was performed. The patient has started in pre-prosthetic phase for the left BKA and has been highly motivated and participating well with physical therapy and occupational therapy. He was using a protective splint/orthosis on the left residual limb. The patient, who lives with his sister, needs to become modified in activities of daily living ( ADL) mobility to return to their home. The gentleman is right-handed. He reports having a prosthesis for his right leg. However, will require some time before he is ready to transition to a left below-knee prosthesis and needs to learn pre-prosthetic mobility and ADL. Patient with BM today. Patient reports being tired and some residual limb pain today and feeling much better after the transfusion with less fatigue. ALLERGIES: See Below MEDICATIONS: Reviewed, see below. OBJECTIVE: VITAL SIGNS: Please see below. PHYSICAL EXAMINATION: GENERAL: Elderly male with right Symes and now a new left BKA. Patient is alert and well oriented and pleasant and cooperative. HEENT: Normocephalic/atraumatic. CARDIOVASCULAR: Regular rate and rhythm with normal S1-S2. 2/4 bilateral radial pulses. LUNGS: All allen clear to auscultation. ABDOMEN: Benign with normal bowel sounds in all quadrants. NEUROLOGICAL: Alert and oriented 4. Speech is clear coherent appropriate. Memory is grossly intact. Patient with a little bit of anxiousness. Motor grossly intact in bilateral upper and right lower extremity except for the foot. Patient with some guarding and tightness in the left knee. SKIN: Healing left BKA incision with moderate edema. LABORATORY DATA: Reviewed. Please see below. MICROBIOLOGY: Please see below. IMAGING: No new imaging. DVT prophylaxis ordered?: None. ASSESSMENT AND PLAN: 1. Rehabilitation of left BKA preprostatic phase: At this time patient needs keep weight off the distal left lower extremity residual limb and proceed with knee range of motion and skin desensitization. Patient also needs to adjust to change in by habitus and his balance with barring adaptive mobility wheelchair and walker. Patient needs to have family bring in his Symes prosthetic to facilitate training. Currently pain seems to be under reasonable control. At this time I feel patient will require approximately 10 days to learn the mobility and ADLs to function at home. Please see initial therapy evaluations attached below. 2. Severe anemia: H&H yesterday morning was 7.1 and 21.5% I have discussed this with the patient and he was transfusion with 2 units of packed red blood cells. His H&H today on 08/12/17 is 9.0 & 26.5%. Vital signs are stable and I will be repeating CBC's. 3. Nutrition: Albumin is notably reduced at 2.2 so we will need to focus patient on appropriate nutrition to heal his new amputation. 4. Type 2 diabetes mellitus: Since admission patient blood sugar have been running from the mid 100s to mid 300s. We will work to try and get better control of this. 5. Urinalysis: No signs of infections however findings consistent with some diabetic affects showing 1+ blood 1+ protein 1+ glucose. While there is 1+ bacteria there is no nitrites and leukoesterase to suggest an active infection. TIME SPENT: Chart Review, examination and documentation require greater than 25 minutes. Allergies Coded Allergies: No Known Allergies (Unverified , 07/30/17) Vital Signs Vital Signs Date Time Temp Pulse Resp B/P (MAP) Pulse Ox O2 Delivery O2 Flow Rate FiO2 08/12/17 14:00 98.7 84 18 133/64 (87) 98 Room Air Laboratory Data CBC/BMP Laboratory Tests 08/12/17 06:52 Red Blood Count 3.21 L, Mean Corpuscular Volume 82.6, Mean Corpuscular Hemoglobin 28.0, Mean Corpuscular Hemoglobin Concent 34.0, Red Cell Distribution Width 14.5, Calcium Level 8.9, Aspartate Amino Transf (AST/SGOT) 12 , Alanine Aminotransferase (ALT/SGPT) 10 L, Alkaline Phosphatase 79, Total Bilirubin 0.3, Total Protein 7.5, Albumin 2.2 L Labs 24H Laboratory Tests 2 08/11/17 17:18: Bedside Glucose (Misc Panel) 244H 08/11/17 20:57: Bedside Glucose (Misc Panel) 232H 08/12/17 06:52: Nucleated Red Blood Cells % (auto) 0.0, Anion Gap 9, Glomerular Filtration Rate > 60.0, Blood Urea Nitrogen 20H, Creatinine 1.03, Sodium Level 141, Potassium Level 3.6, Chloride Level 105, Carbon Dioxide Level 27, Calcium Level 8.9, Aspartate Amino Transf (AST/SGOT) 12, Alanine Aminotransferase (ALT/SGPT) 10L, Alkaline Phosphatase 79, Total Bilirubin 0.3, Total Protein 7.5, Albumin 2.2L, Magnesium Level 1.9, Albumin/Globulin Ratio 0.42L 08/12/17 12:02: Bedside Glucose (Misc Panel) 291H Current Medications Current Medications Current Medications Acetaminophen (Tylenol Tab) 650 mg Q6HP PRN PO PAIN OR FEVER; Start 08/10/17 at 14:45; Stop 09/09/17 at 14:44 Cilostazol (Pletal) 100 mg BID@0730,1730 PO Last administered on 08/12/17 07: 43; Start 08/10/17 at 17:30; Stop 09/09/17 at 17:29 Dextrose (Dextrose 50%) 25 ml ASDIRECTED PRN IV SEE LABEL COMMENTS; Start at 14:45; Stop 09/09/17 at 14:44 Finasteride (Proscar) 5 mg DAILY PO Last administered on 08/12/17 07:44; Start 08/11/17 at 09:00; Stop 09/10/17 at 08:59 Glucagon (Glucagon) 1 mg ASDIRECTED PRN SC SEE LABEL COMMENTS; Start 08/10/17 at 14:45; Stop 09/09/17 at 14:44 Glucose (Glucose) 16 GM ASDIRECTED PRN PO SEE LABEL COMMENTS; Start 08/10/17 at 14:45; Stop 09/09/17 at 14:44 Hydrochlorothiazide (Hydrodiuril) 25 mg DAILY PO Last administered on 07:46; Start 08/11/17 at 09:00; Stop 09/10/17 at 08:59 Insulin Detemir (Levemir Insulin) 55 units QAM SC Last administered on 07:47; Start 08/11/17 at 09:00; Stop 09/10/17 at 08:59 Insulin Human Lispro (HumaLOG INSULIN) See Protocol Table AC SC Last administered on 08/12/17 12:07; Start 08/10/17 at 17:30; Stop 09/09/17 at 17: 29 Insulin Human Lispro (HumaLOG INSULIN) See Protocol Table QHS SC ; Start at 21:00; Stop 09/09/17 at 20:59 Lactobacillus Acidophilus (Bacid) 1 ea WM PO Last administered on 08/12/17 12 :06; Start 08/10/17 at 18:00; Stop 09/09/17 at 17:59 Metoprolol Tartrate (Lopressor) 50 mg BID PO Last administered on 08/12/17 07 :45; Start 08/10/17 at 21:00; Stop 09/09/17 at 20:59 Nifedipine (Procardia Xl) 60 mg DAILY PO Last administered on 08/12/17 07:44 ; Start 08/11/17 at 09:00; Stop 09/10/17 at 08:59 Omeprazole (PriLOSEC) 20 mg DAILY PO Last administered on 08/12/17 07:46; Start 08/11/17 at 09:00; Stop 09/10/17 at 08:59 Oxycodone HCl (Roxicodone, Oxyir) 5 mg Q4HP PRN PO SEVERE PAIN (PS 8-10) Last administered on 08/11/17 21:02; Start 08/10/17 at 14:45; Stop 08/17/17 at 14 :44 Oxycodone/ Acetaminophen (Percocet 5mg/ 325mg Tablet) 1 tab Q4HP PRN PO MODERATE PAIN (PS 5-7); Start 08/10/17 at 14:45; Stop 08/17/17 at 14:44; Status Cancel Potassium Chloride (Micro-K Extencaps) 10 meq DAILY PO Last administered on 07:44; Start 08/12/17 at 09:00; Stop 08/19/17 at 10:00 Ramipril (Altace) 10 mg DAILY PO ; Start 08/10/17 at 09:00; Stop 09/09/17 at 08 :59; Status Cancel Ramipril (Altace) 10 mg DAILY PO Last administered on 08/12/17 07:45; Start 08/11/17 at 09:00; Stop 09/10/17 at 08:59 Simvastatin (Zocor) 20 mg QHS PO Last administered on 08/11/17 21:02; Start 08/10/17 at 21:00; Stop 09/09/17 at 20:59 Sodium Biphosphate/ Sodium Phosphate (Fleet Enema) 1 ENEMA DAILYPRN PRN [place] CONSTIPATION; Start 08/12/17 at 10:45; Stop 09/11/17 at 10:44 Topiramate (TopAMAX) 25 mg BID PO Last administered on 08/12/17 07:47; Start 08/10/17 at 21:00; Stop 09/09/17 at 20:59 Tramadol HCl (Ultram) 50 mg Q4HP PRN PO MODERATE/SEVERE PAIN (PS 5-10) Last administered on 08/11/17 08:14; Start 08/10/17 at 15:30; Stop 08/17/17 at 15 :29 Vitamin D (Vitamin D) 1,000 units DAILY PO ; Start 08/10/17 at 09:00; Stop at 08:59; Status Cancel Vitamin D (Vitamin D) 1,000 units DAILY PO Last administered on 08/12/17 07: 44; Start 08/11/17 at 09:00; Stop 09/10/17 at 08:59 SHU REEVES MD Aug 12, 2017 14:54
[2017-08-12] MEDS ORDERED: BISACODYL 5 MG TAB PO PRN (17:45)
[2017-08-12 20:00] VITALS: BP 139/68
[2017-08-12] MEDS: SIMVASTATIN 20 MG TAB PO SCH (20:01)
[2017-08-12] MEDS: oxyCODONE 5MG TAB PO PRN (20:01)
[2017-08-13 06:00] VITALS: BP 167/79
[2017-08-13] MEDS: NIFEdipine 60 MG XL TAB PO SCH (07:57)
[2017-08-13] MEDS: RAMIPRIL 5 MG CAP PO SCH (07:57)
[2017-08-13] MEDS: LACTOBACILLUS ACIDOPHILUS CAP (BACID) PO SCH ×2 (07:58→11:47)
[2017-08-13] MEDS: OMEPRAZOLE 20 MG CAP PO SCH (07:58)
[2017-08-13] MEDS: VITAMIN D 1,000 INTERNATIONAL UNITS TABLET PO SCH (07:58)
[2017-08-13] MEDS: FINASTERIDE 5 MG TAB PO SCH (07:58)
[2017-08-13] MEDS: METOPROLOL TART 50 MG TAB PO SCH (07:58)
[2017-08-13] MEDS: TOPIRAMATE (TopAMAX) 25 MG TAB PO SCH (07:58)
[2017-08-13] MEDS: CILOSTAZOL 100 MG TAB (PLETAL) PO SCH (07:58)
[2017-08-13] MEDS: hydroCHLOROthiazide 25 MG TAB PO SCH (07:58)
[2017-08-13] MEDS: POTASSIUM CHLORIDE 10 MEQ SR TABLET PO SCH (07:59)
[2017-08-13] MEDS: LEVEMIR (INSULIN DETEMIR) 1 UNITS/0.01ML SC SCH (07:59)
[2017-08-13] MEDS: HumaLOG INSULIN (NovoLOG) PER UNIT SC SCH ×2 (07:59→11:47)
[2017-08-13 10:05] LABS: MEAN CORPUSCULAR HEMOGLOBIN 27.9 pg (27.0-33.0); MEAN CORPUSCULAR HGB CONC 33.2 g/dl (32.0-36.5); PLATELET COUNT, AUTOMATED 505 10^3/uL (150-450); RED CELL DISTRIBUTION WIDTH 14.4 % (11.5-14.5); WHITE BLOOD COUNT 9.7 10^3/uL (4.0-10.0)
[2017-08-13 10:43] LABS: ANION GAP 12 MEQ/L (8-16); BLOOD UREA NITROGEN 19 MG/DL (7-18); CALCIUM LEVEL 8.7 MG/DL (8.8-10.2); CARBON DIOXIDE LEVEL 25 MEQ/L (21-32); CHLORIDE LEVEL 103 MEQ/L (98-107); CREATININE FOR GFR 1.23 MG/DL (0.70-1.30); GLOMERULAR FILTRATION RATE > 60.0 (>42); GLUCOSE, FASTING 331 MG/DL (83-110); SODIUM LEVEL 140 MEQ/L (136-145)
--- NOTE | 2017-08-13 11:52 | IPNPDOC ---
PM&R Progress Note Surgery Aid Progress Note DATE OF SERVICE: 08/13/17 DATE OF ADMISSION: Aug 10, 2017 at 12:07 INPATIENT REHABILITATION ADMISSION DAY: #4 SUBJECTIVE: The patient is a 72-year-old male with type 2 diabetes mellitus and peripheral vascular disease related to development of ischemia and gangrene in BLE's. He has underwent and healed a right Syme's amputation, but then developed ulcer on the left foot and had a transmetatarsal amputation and was having difficulty with breakdown of the amputation and development of a heel ulcer. Due to degree of infection, the patient was assessed by Dr. Bustillo and felt to require more definitive amputation and on a left [id number] was performed. The patient has started in pre-prosthetic phase for the left BKA and has been highly motivated and participating well with physical therapy and occupational therapy. He was using a protective splint/orthosis on the left residual limb. The patient, who lives with his sister, needs to become modified in activities of daily living ( ADL) mobility to return to their home. The gentleman is right-handed. He reports having a prosthesis for his right leg. However, will require some time before he is ready to transition to a left below-knee prosthesis and needs to learn pre-prosthetic mobility and ADL. Patient with BM today. Patient reports doing better since the transfusion with less fatigue. He does have some pain along the incision and distal residual limb. Pain medications are working. At about 1245 hrs patient reported to nursing that he has been having daily sternal pain. Patient report it is gone and appears daily since the start of being in [facility] for the infected gangrenous LLE. There is no radiation and no nausea and it only lasts for a few minutes. He reports not telling anyone on the acute surgical or until now on ARU admissions. ALLERGIES: See Below MEDICATIONS: Reviewed, see below. OBJECTIVE: VITAL SIGNS: Please see below. PHYSICAL EXAMINATION: GENERAL: Elderly male with right Symes and now a new left BKA. Patient is alert and well oriented and pleasant and cooperative. HEENT: Normocephalic/atraumatic. CARDIOVASCULAR: Regular rate and rhythm with normal S1-S2. 2/4 bilateral radial pulses. LUNGS: All allen clear to auscultation. ABDOMEN: Benign with normal bowel sounds in all quadrants. NEUROLOGICAL: Alert and oriented 4. Speech is clear coherent appropriate. Memory is grossly intact. Patient with a little bit of anxiousness. Motor grossly intact in bilateral upper and right lower extremity except for the foot. Patient with some guarding and tightness in the left knee. SKIN: Healing left BKA incision with moderate edema with great color/no drainage along the incision line. Some erythema along the perianal fold. LABORATORY DATA: Reviewed. Please see below. MICROBIOLOGY: Please see below. IMAGING: No new imaging. DVT prophylaxis ordered?: None. ASSESSMENT AND PLAN: 1. Rehabilitation of left BKA preprostatic phase: At this time patient needs keep weight off the distal left lower extremity residual limb and proceed with knee range of motion and skin desensitization. Patient also needs to adjust to change in by habitus and his balance with barring adaptive mobility wheelchair and walker. Patient needs to have family bring in his Symes prosthetic to facilitate training. Currently pain seems to be under reasonable control. Patient doing well in therapies and is very motivated. REHAB. TEAM ROUNDS: 2. Severe anemia: H&H yesterday morning was 7.1 and 21.5% I have discussed this with the patient and he was transfusion with 2 units of packed red blood cells. His H&H today on 08/12/17 is 9.0 & 26.5% and now 9.6 and 29.5% on 08/13/17. Vital signs are stable and no signs of further blood loss. I will continue to watch CBC's though. 3. Nutrition: Albumin is notably reduced at 2.2 so we will need to focus patient on appropriate nutrition to heal his new amputation. 4. Type 2 diabetes mellitus: Since admission patient blood sugar have been running from the mid 100s to mid 300s. We will work to try and get better control of this. 5. Sternal chest pain: EKG with possible lateral ischemia unclear if truly different from prior study. Current Troponin and Cardiac enzymes are negative. TIME SPENT: Chart Review, examination and documentation require greater than [address] Cuello has arranged with Dr. Chavarria at [facility] to admit Mr. Obando for the appropriate cardiac care. Allergies Coded Allergies: No Known Allergies (Unverified , 07/30/17) Vital Signs Vital Signs Date Time Temp Pulse Resp B/P (MAP) Pulse Ox O2 Delivery O2 Flow Rate FiO2 08/13/17 07:58 94 08/13/17 07:57 168/82 08/13/17 06:00 97.0 18 99 Room Air Laboratory Data CBC/BMP Laboratory Tests 08/13/17 09:37 Red Blood Count 3.51 L, Mean Corpuscular Volume 84.0, Mean Corpuscular Hemoglobin 27.9, Mean Corpuscular Hemoglobin Concent 33.2, Red Cell Distribution Width 14.4, Calcium Level 8.7 L Labs 24H Laboratory Tests 2 08/12/17 12:02: Bedside Glucose (Misc Panel) 291H 08/12/17 16:49: Bedside Glucose (Misc Panel) 183H 08/12/17 19:49: Bedside Glucose (Misc Panel) 272H 08/13/17 07:12: Bedside Glucose (Misc Panel) 226H 08/13/17 09:37: Nucleated Red Blood Cells % (auto) 0.0, Anion Gap 12, Glomerular Filtration Rate > 60.0, Blood Urea Nitrogen 19H, Creatinine 1.23, Sodium Level 140, Potassium Level 4.0, Chloride Level 103, Carbon Dioxide Level 25, Calcium Level 8.7L 08/13/17 11:31: Bedside Glucose (Misc Panel) 268H Current Medications Current Medications Current Medications Acetaminophen (Tylenol Tab) 650 mg Q6HP PRN PO PAIN OR FEVER; Start 08/10/17 at 14:45; Stop 09/09/17 at 14:44 Bisacodyl (Dulcolax Tab) 5 mg DAILYPRN PRN PO CONSTIPATION; Start 08/12/17 at 17:45; Stop 09/11/17 at 17:44 Cilostazol (Pletal) 100 mg BID@0730,1730 PO Last administered on 08/13/17 07: 58; Start 08/10/17 at 17:30; Stop 09/09/17 at 17:29 Dextrose (Dextrose 50%) 25 ml ASDIRECTED PRN IV SEE LABEL COMMENTS; Start at 14:45; Stop 09/09/17 at 14:44 Finasteride (Proscar) 5 mg DAILY PO Last administered on 08/13/17 07:58; Start 08/11/17 at 09:00; Stop 09/10/17 at 08:59 Glucagon (Glucagon) 1 mg ASDIRECTED PRN SC SEE LABEL COMMENTS; Start 08/10/17 at 14:45; Stop 09/09/17 at 14:44 Glucose (Glucose) 16 GM ASDIRECTED PRN PO SEE LABEL COMMENTS; Start 08/10/17 at 14:45; Stop 09/09/17 at 14:44 Hydrochlorothiazide (Hydrodiuril) 25 mg DAILY PO Last administered on 07:58; Start 08/11/17 at 09:00; Stop 09/10/17 at 08:59 Insulin Detemir (Levemir Insulin) 55 units QAM SC Last administered on 07:59; Start 08/11/17 at 09:00; Stop 09/10/17 at 08:59 Insulin Human Lispro (HumaLOG INSULIN) See Protocol Table AC SC Last administered on 08/13/17 07:59; Start 08/10/17 at 17:30; Stop 09/09/17 at 17: 29 Insulin Human Lispro (HumaLOG INSULIN) See Protocol Table QHS SC Last administered on 08/12/17 20:01; Start 08/10/17 at 21:00; Stop 09/09/17 at 20: 59 Lactobacillus Acidophilus (Bacid) 1 ea WM PO Last administered on 08/13/17 07 :58; Start 08/10/17 at 18:00; Stop 09/09/17 at 17:59 Metoprolol Tartrate (Lopressor) 50 mg BID PO Last administered on 08/13/17 07 :58; Start 08/10/17 at 21:00; Stop 09/09/17 at 20:59 Nifedipine (Procardia Xl) 60 mg DAILY PO Last administered on 08/13/17 07:57 ; Start 08/11/17 at 09:00; Stop 09/10/17 at 08:59 Omeprazole (PriLOSEC) 20 mg DAILY PO Last administered on 08/13/17 07:58; Start 08/11/17 at 09:00; Stop 09/10/17 at 08:59 Oxycodone HCl (Roxicodone, Oxyir) 5 mg Q4HP PRN PO SEVERE PAIN (PS 8-10) Last administered on 08/12/17 20:01; Start 08/10/17 at 14:45; Stop 08/17/17 at 14 :44 Oxycodone/ Acetaminophen (Percocet 5mg/ 325mg Tablet) 1 tab Q4HP PRN PO MODERATE PAIN (PS 5-7); Start 08/10/17 at 14:45; Stop 08/17/17 at 14:44; Status Cancel Potassium Chloride (Micro-K Extencaps) 10 meq DAILY PO Last administered on 07:59; Start 08/12/17 at 09:00; Stop 08/19/17 at 10:00 Ramipril (Altace) 10 mg DAILY PO ; Start 08/10/17 at 09:00; Stop 09/09/17 at 08 :59; Status Cancel Ramipril (Altace) 10 mg DAILY PO Last administered on 08/13/17 07:57; Start 08/11/17 at 09:00; Stop 09/10/17 at 08:59 Simvastatin (Zocor) 20 mg QHS PO Last administered on 08/12/17 20:01; Start 08/10/17 at 21:00; Stop 09/09/17 at 20:59 Sodium Biphosphate/ Sodium Phosphate (Fleet Enema) 1 ENEMA DAILYPRN PRN [place] CONSTIPATION; Start 08/12/17 at 10:45; Stop 09/11/17 at 10:44 Topiramate (TopAMAX) 25 mg BID PO Last administered on 08/13/17 07:58; Start 08/10/17 at 21:00; Stop 09/09/17 at 20:59 Tramadol HCl (Ultram) 50 mg Q4HP PRN PO MODERATE/SEVERE PAIN (PS 5-10) Last administered on 08/11/17 08:14; Start 08/10/17 at 15:30; Stop 08/17/17 at 15 :29 Vitamin D (Vitamin D) 1,000 units DAILY PO ; Start 08/10/17 at 09:00; Stop at 08:59; Status Cancel Vitamin D (Vitamin D) 1,000 units DAILY PO Last administered on 08/13/17 07: 58; Start 08/11/17 at 09:00; Stop 09/10/17 at 08:59 SHU REEVES MD Aug 13, 2017 11:52
--- NOTE | 2017-08-13 12:05 | IPNPDOC ---
Date Seen The patient was seen on 08/13/17. Progress Note HPI: 72year oldM status post BKA as per Dr. Bustillo 08/05/17. Patient is transferred to the care of ARU, Dr Hardin, 08/10/17. Pt is currently in bed, no concerns at this time. Denies any fevers, chills, Headache, Chest Pain, Shortness of breath, cough, palpitations, abdominal pain, N/V/D or changes in bowel or bladder habits. PMHx: CAD/H/O Stent x 2 per pt approx 2011. has seen cardiology in [facility] in past. Hypertension IDDM Dyslipidemia PVD BPH GERD PSHX: Left transmetatarsal amputation Left BKA 08/05/17. Dr Bustillo. FAMILY HISTORY: Includes active type 2 diabetes mellitus history. SOCIAL HISTORY: The patient is a former smoker having quit greater than a year ago. Denies drinking alcohol. Denies any illicit drugs. ROS: As noted in HPI, otherwise 11pt ROS of systems reviewed and unremarkable. PE: GEN: 72yoM, appears stated age. No acute distress. Alert and oriented x 3. Pleasant, interactive. HEENT: Normocephalic, atraumatic. Sclera are nonicteric. Conjunctiva without injection. No facial asymmetry. Moist mucous membranes. Pharynx pink and moist. Neck supple, trachea midline. No lymphadenopathy or thyromegaly appreciated. CHEST: Regular rate and rhythm, +S1, +S2 LUNGS: Clear to auscultation bilaterally. No wheezes, rales, or rhonchi. ABD: Round, soft, non-tender, non-distended. +Bowel sounds throughout. No rebound or guarding. EXT: Lt BKA. No lower extremity edema appreciated. SKIN: No rashes. NEURO: No focal deficits appreciated. A&P: 72year old M status post BKA as per Dr. Bustillo 08/05/17. Patient is transferred to the care of [place], Dr Hardin, 08/10/17. 1. S/P Left BKA. Management as per vascular surgery, Dr Bustillo. PT/OT as per Dr Wilfred ALSTON. Pain control as per ARU. Bowel care as per ARU. DVT prophylaxis as per ARU. 2. Peripheral vascular disease. Patient remains on Pletal. Management as per vascular surgery. 3. IDDM. Consistent carbohydrate diet. Levemir 55 units a.m. SSI. . 4. HTN. Continue with HCTZ 25 mg daily. Procardia XL 60 mg daily Ramipril 10 mg chaya. SCr 1.23 Lopressor 25 mg BID, will consider increasing this as BP trend 160s and HR trend 70s-90s. Previously 121-158 systolic. Request manual BP this AM. 5. HLD. Continue Zocor. 6. BPH. Continue Proscar. 7. GERD. Continue Prilosec. 8. Acute blood loss anemia. S/P 2 U PRBC 08/11/17. iron studies, B12, folate. Stool occult blood pending. Monitor. Hgb 9.8. 9. Hypokalemia. Cont oral supplement. resolved. 10. CAD/H/O Stent x 2. Continue metoprolol/statin. Addendum- re evaluated Pt as he reported CP to a staff member on unit this afternoon. Pt states he has had CP 1-2 times per day since he has come to the hospital. Substernal and left chest, heavy, no associated SOB/palpitations/ diaphoresis/ radiation. Pt states it occurs at rest. Resolves on its own. Denies CP with activity or with therapy. EKG requested. Serial CIP/Troponin requested. Reviewed with Dr Kowalski, who reviewed prelim EKG as well. No acute changes. Similar to 08/03/17 tracing. Monitor serial CIP/Troponin. EKG with CP Additional dose of Lopressor 25mg po x 1 now then 75mg po BID. Pt is aware to report recurrent symptoms. VS[facility]/I&O Vital Signs Date Time Temp Pulse Resp B/P (MAP) Pulse Ox O2 Delivery O2 Flow Rate FiO2 08/13/17 07:58 94 08/13/17 07:57 168/82 08/13/17 06:00 97.0 18 99 Room Air I&O- Last 24 Hours up to 6 AM 08/13/17 06:00 Intake Total 960 ml Output Total 2075 ml Balance -1115 ml Laboratory Data 24H LABS Laboratory Tests 2 08/12/17 12:02: Bedside Glucose (Misc Panel) 291H 08/12/17 16:49: Bedside Glucose (Misc Panel) 183H 08/12/17 19:49: Bedside Glucose (Misc Panel) 272H 08/13/17 07:12: Bedside Glucose (Misc Panel) 226H 08/13/17 09:37: Nucleated Red Blood Cells % (auto) 0.0, Anion Gap 12, Glomerular Filtration Rate > 60.0, Blood Urea Nitrogen 19H, Creatinine 1.23, Sodium Level 140, Potassium Level 4.0, Chloride Level 103, Carbon Dioxide Level 25, Calcium Level 8.7L 08/13/17 11:31: Bedside Glucose (Misc Panel) 268H CBC/BMP Laboratory Tests 08/13/17 09:37 Red Blood Count 3.51 L, Mean Corpuscular Volume 84.0, Mean Corpuscular Hemoglobin 27.9, Mean Corpuscular Hemoglobin Concent 33.2, Red Cell Distribution Width 14.4, Calcium Level 8.7 L Henna Thomas Aug 13, 2017 12:05
[2017-08-13 13:00] VITALS: BP 148/64
[2017-08-13] MEDS ORDERED: METOPROLOL TART 25 MG TABLET PO ONE (14:30)
[2017-08-13 14:48] VITALS: BP 138/60
[2017-08-13] MEDS ORDERED: OXYCO5TA PO (16:41)
--- NOTE | 2017-08-13 16:44 | DS.PDOC ---
PM&R Discharge Summary Patient Support Specialist Discharge Note DATE OF ADMISSION: Aug 10, 2017 at 12:07 DATE OF DISCHARGE: 08/13/17 DISCHARGE DIAGNOSES: 1. Cardiac ischemia@rest of relative new onset. 2. 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 3. Type 2 diabetes mellitus. 4. ASCVD with coronary artery disease, peripheral vascular disease, hypertension , hypercholesterolemia. PAST MEDICAL HISTORY: 1. Failed left transmetatarsal amputation. 2. GERD. 3. Obstructive sleep apnea. 4. I'm prostatic hypertrophy. HOSPITAL COURSE: 72-year-old right-handed male with extensive atherosclerotic cardiovascular disease history particularly peripheral vascular disease leading to current left below-knee amputation along with prior right Syme amputation admitted on postoperative day #4. Patient found to have reduced hemoglobin of 7.1 on admission labs of 08/11/17. Patient received 2 units of packed red blood cells and current hemoglobin is 9.8. Patient notes feeling notably better since receiving the transfusion. Patient had been making very good progress in physical occupational therapy and was reviewed at rehabilitation team rounds today and felt that he was on course to reach discharge goals to function with wheelchair and walker mobility by 08/19/17. Patient did have an increase in the last 24 hours in his systolic blood pressures into the 150s to 165's after initially right in the 120s to 130s. Ongoing no find his nurse at approximately 1245 this afternoon that he had been having once to twice a day sternal pain without radiation that would resolve within a few minutes at rest EKG was obtained and cardiac enzymes. Dr. Cuello of cardiology reviewed the EKG and noted significant change from his prior EKG and recommends patient needs acute cardiac catheterization. Cardiac enzymes were negative. PHYSICAL EXAMINATION: VITAL SIGNS: Temperature 98.6 degrees Fahrenheit, pulse 93, respiratory rate 18 , blood pressure [138/60, 97% on room air. GENERAL: Patient is a well-nourished well-developed white male with right Symes amputation that is well healed and a left below-knee amputation that is currently healing well without any drainage, inflammation or increased pain. HEENT: [Normocephalic/atraumatic uses glasses for visual correction. CARDIOVASCULAR: Regular rate and rhythm with normal S1, S2. LUNGS: Clear to auscultation bilaterally, no wheezing or rhonchi. ABDOMEN: Soft, nontender, nondistended. Normoactive bowel sounds throughout. NEUROLOGICAL: Alert and oriented times four. Answers all questions appropriately. Able to follow commands. LABORATORY DATA: Please see below. ALLERGIES: See below. MEDICATIONS: See Below. DISCHARGE DISPOSITION: Patient being transferred to [facility] Dr. Chavarria's service for cardiac evaluation with probable cardiac catheterization due to ischemia@rest. Vital Signs/I&O Vital Sign - Last 24 Hours 08/12/17 08/12/17 08/12/17 08/12/17 20:00 20:00 20:01 20:31 Temp 97.5 Pulse 93 91 Resp 18 18 16 B/P (MAP) 139/68 (91) 160/72 Pulse Ox 98 O2 Delivery Room Air 08/13/17 08/13/17 08/13/17 08/13/17 06:00 07:57 07:58 13:00 Temp 97.0 98.6 Pulse 79 94 93 Resp 18 18 B/P (MAP) 167/79 (108) 168/82 148/64 (92) Pulse Ox 99 97 O2 Delivery Room Air Room Air 08/13/17 14:48 B/P (MAP) 138/60 I&O- Last 24 Hours up to 6 AM 08/13/17 06:00 Intake Total 960 ml Output Total 2075 ml Balance -1115 ml Laboratory Data CBC/BMP Laboratory Tests 08/12/17 06:52 Red Blood Count 3.21 L, Mean Corpuscular Volume 82.6, Mean Corpuscular Hemoglobin 28.0, Mean Corpuscular Hemoglobin Concent 34.0, Red Cell Distribution Width 14.5, Calcium Level 8.9, Aspartate Amino Transf (AST/SGOT) 12 , Alanine Aminotransferase (ALT/SGPT) 10 L, Alkaline Phosphatase 79, Total Bilirubin 0.3, Total Protein 7.5, Albumin 2.2 L 08/13/17 09:37 Red Blood Count 3.51 L, Mean Corpuscular Volume 84.0, Mean Corpuscular Hemoglobin 27.9, Mean Corpuscular Hemoglobin Concent 33.2, Red Cell Distribution Width 14.4, Calcium Level 8.7 L Labs 48H Laboratory Tests 08/11/17 17:18: Bedside Glucose (Misc Panel) 244H 08/11/17 20:57: Bedside Glucose (Misc Panel) 232H 08/12/17 06:52: White Blood Count 9.0, Red Blood Count 3.21L, Hemoglobin 9.0L, Hematocrit 26.5L , Mean Corpuscular Volume 82.6, Mean Corpuscular Hemoglobin 28.0, Mean Corpuscular Hemoglobin Concent 34.0, Red Cell Distribution Width 14.5, Platelet Count 425, Nucleated Red Blood Cells % (auto) 0.0, Blood Urea Nitrogen 20H, Creatinine 1.03, Sodium Level 141, Potassium Level 3.6, Chloride Level 105, Carbon Dioxide Level 27, Calcium Level 8.9, Aspartate Amino Transf (AST/SGOT) 12 , Alanine Aminotransferase (ALT/SGPT) 10L, Alkaline Phosphatase 79, Total Bilirubin 0.3, Total Protein 7.5, Albumin 2.2L, Anion Gap 9, Glomerular Filtration Rate > 60.0, Fasting Glucose 196H, Magnesium Level 1.9, Albumin/ Globulin Ratio 0.42L 08/12/17 12:02: Bedside Glucose (Misc Panel) 291H 08/12/17 16:49: Bedside Glucose (Misc Panel) 183H 08/12/17 19:49: Bedside Glucose (Misc Panel) 272H 08/13/17 07:12: Bedside Glucose (Misc Panel) 226H 08/13/17 09:37: White Blood Count 9.7, Red Blood Count 3.51L, Hemoglobin 9.8L, Hematocrit 29.5L , Mean Corpuscular Volume 84.0, Mean Corpuscular Hemoglobin 27.9, Mean Corpuscular Hemoglobin Concent 33.2, Red Cell Distribution Width 14.4, Platelet Count 505H, Nucleated Red Blood Cells % (auto) 0.0, Blood Urea Nitrogen 19H, Creatinine 1.23, Sodium Level 140, Potassium Level 4.0, Chloride Level 103, Carbon Dioxide Level 25, Calcium Level 8.7L, Anion Gap 12, Glomerular Filtration Rate > 60.0, Fasting Glucose 331H 08/13/17 11:31: Bedside Glucose (Misc Panel) 268H 08/13/17 13:13: Total Creatine Kinase 124, Creatine Kinase MB 1.0, Creatine Kinase MB Relative Index 0.80, Troponin I < 0.02 FSBS Laboratory Tests Test 08/12/17 16:49 08/12/17 19:49 08/13/17 07:12 08/13/17 11:31 Range/Units Bedside Glucose (Misc Panel) 183 272 226 268 83-110 MG/DL Medications Medications Current Medications Acetaminophen (Tylenol Tab) 650 mg Q6HP PRN PO PAIN OR FEVER; Start 08/10/17 at 14:45; Stop 09/09/17 at 14:44 Bisacodyl (Dulcolax Tab) 5 mg DAILYPRN PRN PO CONSTIPATION; Start 08/12/17 at 17:45; Stop 09/11/17 at 17:44 Cilostazol (Pletal) 100 mg BID@0730,1730 PO Last administered on 08/13/17 07: 58; Start 08/10/17 at 17:30; Stop 09/09/17 at 17:29 Dextrose (Dextrose 50%) 25 ml ASDIRECTED PRN IV SEE LABEL COMMENTS; Start at 14:45; Stop 09/09/17 at 14:44 Finasteride (Proscar) 5 mg DAILY PO Last administered on 08/13/17 07:58; Start 08/11/17 at 09:00; Stop 09/10/17 at 08:59 Glucagon (Glucagon) 1 mg ASDIRECTED PRN SC SEE LABEL COMMENTS; Start 08/10/17 at 14:45; Stop 09/09/17 at 14:44 Glucose (Glucose) 16 GM ASDIRECTED PRN PO SEE LABEL COMMENTS; Start 08/10/17 at 14:45; Stop 09/09/17 at 14:44 Hydrochlorothiazide (Hydrodiuril) 25 mg DAILY PO Last administered on 07:58; Start 08/11/17 at 09:00; Stop 09/10/17 at 08:59 Insulin Detemir (Levemir Insulin) 55 units QAM SC Last administered on 07:59; Start 08/11/17 at 09:00; Stop 09/10/17 at 08:59 Insulin Human Lispro (HumaLOG INSULIN) See Protocol Table AC SC Last administered on 08/13/17 11:47; Start 08/10/17 at 17:30; Stop 09/09/17 at 17: 29 Insulin Human Lispro (HumaLOG INSULIN) See Protocol Table QHS SC Last administered on 08/12/17 20:01; Start 08/10/17 at 21:00; Stop 09/09/17 at 20: 59 Lactobacillus Acidophilus (Bacid) 1 ea WM PO Last administered on 08/13/17 11 :47; Start 08/10/17 at 18:00; Stop 09/09/17 at 17:59 Metoprolol Tartrate (Lopressor) 50 mg BID PO Last administered on 08/13/17 07 :58; Start 08/10/17 at 21:00; Stop 08/13/17 at 14:31; Status DC Metoprolol Tartrate (Lopressor) 75 mg BID PO ; Start 08/13/17 at 21:00; Stop at 20:59 Nifedipine (Procardia Xl) 60 mg DAILY PO Last administered on 08/13/17 07:57 ; Start 08/11/17 at 09:00; Stop 09/10/17 at 08:59 Omeprazole (PriLOSEC) 20 mg DAILY PO Last administered on 08/13/17 07:58; Start 08/11/17 at 09:00; Stop 09/10/17 at 08:59 Oxycodone HCl (Roxicodone, Oxyir) 5 mg Q4HP PRN PO SEVERE PAIN (PS 8-10) Last administered on 08/12/17 20:01; Start 08/10/17 at 14:45; Stop 08/17/17 at 14 :44 Oxycodone/ Acetaminophen (Percocet 5mg/ 325mg Tablet) 1 tab Q4HP PRN PO MODERATE PAIN (PS 5-7); Start 08/10/17 at 14:45; Stop 08/17/17 at 14:44; Status Cancel Potassium Chloride (Micro-K Extencaps) 10 meq DAILY PO Last administered on 07:59; Start 08/12/17 at 09:00; Stop 08/19/17 at 10:00 Ramipril (Altace) 10 mg DAILY PO ; Start 08/10/17 at 09:00; Stop 09/09/17 at 08 :59; Status Cancel Ramipril (Altace) 10 mg DAILY PO Last administered on 08/13/17 07:57; Start 08/11/17 at 09:00; Stop 09/10/17 at 08:59 Simvastatin (Zocor) 20 mg QHS PO Last administered on 08/12/17 20:01; Start 08/10/17 at 21:00; Stop 09/09/17 at 20:59 Sodium Biphosphate/ Sodium Phosphate (Fleet Enema) 1 ENEMA DAILYPRN PRN [place] CONSTIPATION; Start 08/12/17 at 10:45; Stop 09/11/17 at 10:44 Topiramate (TopAMAX) 25 mg BID PO Last administered on 08/13/17 07:58; Start 08/10/17 at 21:00; Stop 09/09/17 at 20:59 Tramadol HCl (Ultram) 50 mg Q4HP PRN PO MODERATE/SEVERE PAIN (PS 5-10) Last administered on 08/11/17 08:14; Start 08/10/17 at 15:30; Stop 08/17/17 at 15 :29 Vitamin D (Vitamin D) 1,000 units DAILY PO ; Start 08/10/17 at 09:00; Stop at 08:59; Status Cancel Vitamin D (Vitamin D) 1,000 units DAILY PO Last administered on 08/13/17 07: 58; Start 08/11/17 at 09:00; Stop 09/10/17 at 08:59 Scheduled Alfuzosin Hydrochloride (Alfuzosin HCl ER) 10 Mg Tab, 10 MG PO DAILY, (Reported) Cholecalciferol (Vitamin D) 1,000 Unit Tab, 1,000 UNIT PO DAILY, (Reported) Cilostazol (Cilostazol) 100 Mg Tab, 100 MG PO BID, (Reported) Fenofibrate (Fenofibrate) 54 Mg Tab, 54 MG PO DAILY, (Reported) Finasteride (Finasteride) 5 Mg Tab, 5 MG PO DAILY, (Reported) Hydrochlorothiazide (Hydrochlorothiazide) 25 Mg Tab, 25 MG PO DAILY, (Reported) Insulin Aspart (Novolog) 100 U/Ml Inj, 1 DOSE SC AC, (Reported) Insulin Glargine (Lantus) 1 Units/0.01 Ml Susp, 55 UNITS SC DAILY, (Reported) Lactobacillus Acidophilus (Bacid) 1 Tab Tab, 1 TAB PO WM, (Reported) Metoprolol Tartrate (Metoprolol Tartrate) 50 Mg Tab, 50 MG PO BID, (Reported) Nifedipine (Nifedical Xl) 60 Mg Tab, 60 MG PO DAILY, (Reported) Omeprazole (Omeprazole) 20 Mg Cap, 20 MG PO DAILY, (Reported) Ramipril (Ramipril) 10 Mg Cap, 10 MG PO DAILY, (Reported) Simvastatin (Simvastatin) 20 Mg Tab, 20 MG PO QHS, (Reported) Topiramate (Topiramate) 25 Mg Tab, 25 MG PO BID, (Reported) Scheduled PRN Acetaminophen (Acetaminophen) 325 Mg Tab, 650 MG PO Q6H PRN for PAIN, (Reported) Oxycodone/Acetaminophen (Percocet 5-325 mg) 1 Tab Tab, 1 TAB PO BID PRN for PAIN , (Reported) Tramadol HCl (Tramadol HCl) 50 Mg Tab, 50 MG PO Q6H PRN for PAIN, (Reported) Allergies Coded Allergies: No Known Allergies (Unverified , 07/30/17) SHU REEVES MD Aug 13, 2017 16:44
[2017-08-13] MEDS ORDERED: ASPIRIN 325 MG TAB PO ONE (17:00)
--- NOTE | 2017-08-13 19:17 | ECGEPIP ---
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
[2017-08-13] MEDS ORDERED: METOPROLOL TART 25 MG TABLET PO SCH (21:00)
== END 2017-08-13 18:00 | disposition short-term general hospital (02) | DRG 560 ==
LOC: M PM&R 12:07
PROVIDERS: ADMIT Physical Medicine & Rehabilitation; ATTEND Physical Medicine & Rehabilitation
PROC: 30253N1 (ICD-10-PCS; principal; 2017-08-11)
DX: Z47.81 Encounter for orthopedic aftercare following surgical amputation (principal); D62 Acute posthemorrhagic anemia; E11.51 Type 2 diabetes mellitus with diabetic peripheral angiopathy without gangrene; I25.10 Atherosclerotic heart disease of native coronary artery without angina pectoris; I10 Essential (primary) hypertension; E78.5 Hyperlipidemia, unspecified; N40.0 Benign prostatic hyperplasia without lower urinary tract symptoms; E11.40 Type 2 diabetes mellitus with diabetic neuropathy, unspecified; E87.6 Hypokalemia; R07.89 Other chest pain; K21.9 Gastro-esophageal reflux disease without esophagitis; E78.00 Pure hypercholesterolemia, unspecified; Z79.4 Long term (current) use of insulin; Z79.899 Other long term (current) drug therapy; Z79.891 Long term (current) use of opiate analgesic; Z87.891 Personal history of nicotine dependence; Z89.512 Acquired absence of left leg below knee

== ENCOUNTER 2017-08-19 15:15 | Inpatient (IN) | payer MEDICARE ==
[~2017-08-19 15:15] MED LIST changes: -ACET1TAB17 PO; +ACETAMINOPHEN TAB 650MG DOSE (2X325MG) PO; -ALFU10TA2 PO; -BACITAB PO; +BISACODYL 5 MG TAB PO; -CILO100T PO; +DEXTROSE 50% 50 ML SYRINGE IV; -FENO54TA2 PO; -FINA5TAB2 PO; +GLUCAGON FOR INJ 1 MG VIAL (J1610) SC; +GLUCOSE 4 GM CHEW TABLET PO; -HYDR25TAB PO; -INSUH10VL SC; -INSULANT SC; -METO50TA7 PO; +MOM 30ML SUSPENSION UDC PO; -NIFE15TA PO; +NITROGLYCERIN 0.4 MG SUBL TABLET SL; -OMEP20CA3 PO; -PERC5TAB12 PO; +PERCOCET 5MG/325MG TAB PO; -RAMI10CA PO; -RAMIPRIL 5 MG CAP PO SCH; -SIMV20TA2 PO; -TOPI25TA10 PO; -TRAM50TA2 PO; -VITA100066 PO; -VITAMIN D 1,000 INTERNATIONAL UNITS TABLET PO SCH
[2017-08-19 17:08] LABS: BEDSIDE GLUCOSE 151 MG/DL (83-110)
[2017-08-19] MEDS: HumaLOG INSULIN (NovoLOG) PER UNIT SC ×2 (18:42→20:30)
[2017-08-19] MEDS: LACTOBACILLUS ACIDOPHILUS CAP (BACID) PO (18:42)
[2017-08-19 19:45] LABS: BEDSIDE GLUCOSE 194 MG/DL (83-110)
[2017-08-19] MEDS: TOPIRAMATE (TopAMAX) 25 MG TAB PO (20:59)
[2017-08-19] MEDS: ATORVASTATIN 20 MG TAB PO (20:59)
[2017-08-19] MEDS: FERROUS GLUCONATE 324 MG TAB PO (20:59)
[2017-08-19] MEDS: FENOFIBRATE 48 MG TAB (TRICOR) PO (21:00)
[2017-08-19] MEDS: TICAGRELOR 90 MG TABLET (BRILINTA) PO (21:00)
[2017-08-19] MEDS: METOPROLOL TART 50 MG TAB PO (21:00)
[2017-08-20 06:58] LABS: BEDSIDE GLUCOSE 247 MG/DL (83-110)
[2017-08-20 07:12] LABS: BASO # 0.1 10^3/uL (0.0-0.2); BASO % 0.6 % (0.0-1.0); EOS # 0.3 10^3/uL (0.0-0.50); EOS % 3.2 % (0.0-3.0); HEMATOCRIT 32.4 % (42.0-52.0); HEMOGLOBIN 10.6 g/dl (14.0-18.0); IMMATURE GRANULOCYTE # 0.1 10^3/uL (0-0); IMMATURE GRANULOCYTE % 0.8 % (0-0); LYMPH # 1.6 10^3/uL (1.5-4.5); LYMPH % 16.2 % (24.0-44.0); MEAN CORPUSCULAR HEMOGLOBIN 28.4 pg (27.0-33.0); MEAN CORPUSCULAR HGB CONC 32.7 g/dl (32.0-36.5); MEAN CORPUSCULAR VOLUME 86.9 fl (80.0-96.0); MONO # 0.9 10^3/uL (0.0-0.8); MONO % 8.8 % (0.0-5.0); NEUTROPHILS # 6.9 10^3/uL (1.8-7.7); NEUTROPHILS % 70.4 % (36.0-66.0); PLATELET COUNT, AUTOMATED 426 10^3/uL (150-450); RED BLOOD COUNT 3.73 10^6/uL (4.30-6.10); RED CELL DISTRIBUTION WIDTH 15.1 % (11.5-14.5); WHITE BLOOD COUNT 9.8 10^3/uL (4.0-10.0)
[2017-08-20 07:28] LABS: ALBUMIN 2.9 GM/DL (3.2-5.2); ALBUMIN/GLOBULIN RATIO 0.63 (1.00-1.93); ALKALINE PHOSPHATASE 103 U/L (45-117); ALT/SGPT 13 U/L (12-78); ANION GAP 7 MEQ/L (8-16); AST/SGOT 12 U/L (7-37); BILIRUBIN,TOTAL 0.3 MG/DL (0.2-1.0); BLOOD UREA NITROGEN 26 MG/DL (7-18); CALCIUM LEVEL 9.1 MG/DL (8.8-10.2); CARBON DIOXIDE LEVEL 27 MEQ/L (21-32); CHLORIDE LEVEL 105 MEQ/L (98-107); CREATININE FOR GFR 1.15 MG/DL (0.70-1.30); GLOMERULAR FILTRATION RATE > 60.0 (>42); GLUCOSE, FASTING 263 MG/DL (83-110); POTASSIUM SERUM 4.3 MEQ/L (3.5-5.1); SODIUM LEVEL 139 MEQ/L (136-145); TOTAL PROTEIN 7.5 GM/DL (6.4-8.2)
[2017-08-20] MEDS: HumaLOG INSULIN (NovoLOG) PER UNIT SC ×4 (07:36→20:26)
[2017-08-20] MEDS: LACTOBACILLUS ACIDOPHILUS CAP (BACID) PO ×2 (07:36→17:03)
[2017-08-20] MEDS: FINASTERIDE 5 MG TAB PO (08:12)
[2017-08-20] MEDS: ASPIRIN 81 MG CHEW TABLET PO (08:13)
[2017-08-20] MEDS: hydroCHLOROthiazide 25 MG TAB PO (08:13)
[2017-08-20] MEDS: LEVEMIR (INSULIN DETEMIR) 1 UNITS/0.01ML SC (08:13)
[2017-08-20] MEDS: RAMIPRIL 5 MG CAP PO (08:14)
[2017-08-20] MEDS: OMEPRAZOLE 20 MG CAP PO (08:14)
[2017-08-20] MEDS: VITAMIN D 1,000 INTERNATIONAL UNITS TABLET PO (08:14)
[2017-08-20] MEDS: TOPIRAMATE (TopAMAX) 25 MG TAB PO ×2 (08:14→20:27)
[2017-08-20] MEDS: METOPROLOL TART 50 MG TAB PO ×2 (08:14→20:27)
[2017-08-20] MEDS: NIFEdipine 60 MG XL TAB PO (08:14)
[2017-08-20] MEDS: FERROUS GLUCONATE 324 MG TAB PO ×2 (08:14→20:26)
[2017-08-20] MEDS: TICAGRELOR 90 MG TABLET (BRILINTA) PO ×2 (08:15→20:27)
[2017-08-20] MEDS ORDERED: ALFUZOSIN 10 MG PO (09:00)
[2017-08-20 11:30] LABS: BEDSIDE GLUCOSE 363 MG/DL (83-110)
[2017-08-20 16:34] LABS: BEDSIDE GLUCOSE 210 MG/DL (83-110)
[2017-08-20 20:11] LABS: BEDSIDE GLUCOSE 276 MG/DL (83-110)
[2017-08-20] MEDS: ATORVASTATIN 20 MG TAB PO (20:27)
[2017-08-20] MEDS: FENOFIBRATE 48 MG TAB (TRICOR) PO (20:27)
[2017-08-21] MEDS: traMADol 50 MG TAB PO (01:07)
[2017-08-21 07:48] LABS: BEDSIDE GLUCOSE 161 MG/DL (83-110)
[2017-08-21] MEDS: LEVEMIR (INSULIN DETEMIR) 1 UNITS/0.01ML SC (08:26)
[2017-08-21] MEDS: HumaLOG INSULIN (NovoLOG) PER UNIT SC ×4 (08:27→20:55)
[2017-08-21] MEDS: TOPIRAMATE (TopAMAX) 25 MG TAB PO ×2 (08:27→20:53)
[2017-08-21] MEDS: FINASTERIDE 5 MG TAB PO (08:27)
[2017-08-21] MEDS: TICAGRELOR 90 MG TABLET (BRILINTA) PO ×2 (08:27→20:52)
[2017-08-21] MEDS: hydroCHLOROthiazide 25 MG TAB PO (08:27)
[2017-08-21] MEDS: VITAMIN D 1,000 INTERNATIONAL UNITS TABLET PO (08:27)
[2017-08-21] MEDS: ASPIRIN 81 MG CHEW TABLET PO (08:27)
[2017-08-21] MEDS: METOPROLOL TART 50 MG TAB PO ×2 (08:27→20:51)
[2017-08-21] MEDS: NIFEdipine 60 MG XL TAB PO (08:28)
[2017-08-21] MEDS: LACTOBACILLUS ACIDOPHILUS CAP (BACID) PO ×2 (08:28→17:15)
[2017-08-21] MEDS: RAMIPRIL 5 MG CAP PO (08:28)
[2017-08-21] MEDS: FERROUS GLUCONATE 324 MG TAB PO ×2 (08:28→20:52)
[2017-08-21] MEDS: OMEPRAZOLE 20 MG CAP PO (08:28)
[2017-08-21 11:29] LABS: BEDSIDE GLUCOSE 287 MG/DL (83-110)
[2017-08-21 16:56] LABS: BEDSIDE GLUCOSE 284 MG/DL (83-110)
[2017-08-21 20:39] LABS: BEDSIDE GLUCOSE 309 MG/DL (83-110)
[2017-08-21] MEDS: FENOFIBRATE 48 MG TAB (TRICOR) PO (20:51)
[2017-08-21] MEDS: ATORVASTATIN 20 MG TAB PO (20:54)
[2017-08-22] MEDS: OMEPRAZOLE 20 MG CAP PO (08:20)
[2017-08-22] MEDS: ASPIRIN 81 MG CHEW TABLET PO (08:20)
[2017-08-22] MEDS: HumaLOG INSULIN (NovoLOG) PER UNIT SC ×4 (08:20→20:22)
[2017-08-22] MEDS: FINASTERIDE 5 MG TAB PO (08:20)
[2017-08-22] MEDS: TICAGRELOR 90 MG TABLET (BRILINTA) PO ×2 (08:21→20:20)
[2017-08-22] MEDS: VITAMIN D 1,000 INTERNATIONAL UNITS TABLET PO (08:21)
[2017-08-22] MEDS: LACTOBACILLUS ACIDOPHILUS CAP (BACID) PO ×2 (08:21→18:01)
[2017-08-22] MEDS: hydroCHLOROthiazide 25 MG TAB PO (08:21)
[2017-08-22] MEDS: RAMIPRIL 5 MG CAP PO (08:21)
[2017-08-22] MEDS: TOPIRAMATE (TopAMAX) 25 MG TAB PO ×2 (08:22→20:20)
[2017-08-22] MEDS: METOPROLOL TART 50 MG TAB PO ×2 (08:22→20:21)
[2017-08-22] MEDS: FERROUS GLUCONATE 324 MG TAB PO ×2 (08:22→20:20)
[2017-08-22] MEDS: NIFEdipine 60 MG XL TAB PO (08:22)
[2017-08-22] MEDS: LEVEMIR (INSULIN DETEMIR) 1 UNITS/0.01ML SC (08:23)
[2017-08-22 12:13] LABS: BEDSIDE GLUCOSE 314 MG/DL (83-110)
[2017-08-22 17:29] LABS: BEDSIDE GLUCOSE 306 MG/DL (83-110)
[2017-08-22 19:54] LABS: BEDSIDE GLUCOSE 287 MG/DL (83-110)
[2017-08-22] MEDS: FENOFIBRATE 48 MG TAB (TRICOR) PO (20:20)
[2017-08-22] MEDS: ATORVASTATIN 20 MG TAB PO (20:21)
[2017-08-23 06:56] LABS: BEDSIDE GLUCOSE 229 MG/DL (83-110)
[2017-08-23] MEDS: HumaLOG INSULIN (NovoLOG) PER UNIT SC ×4 (08:12→21:00)
[2017-08-23] MEDS: FERROUS GLUCONATE 324 MG TAB PO ×2 (08:12→21:07)
[2017-08-23] MEDS: LACTOBACILLUS ACIDOPHILUS CAP (BACID) PO ×2 (08:13→17:23)
[2017-08-23] MEDS: RAMIPRIL 5 MG CAP PO (08:13)
[2017-08-23] MEDS: VITAMIN D 1,000 INTERNATIONAL UNITS TABLET PO (08:13)
[2017-08-23] MEDS: FINASTERIDE 5 MG TAB PO (08:13)
[2017-08-23] MEDS: TICAGRELOR 90 MG TABLET (BRILINTA) PO ×2 (08:13→21:07)
[2017-08-23] MEDS: METOPROLOL TART 50 MG TAB PO ×2 (08:13→21:07)
[2017-08-23] MEDS: TOPIRAMATE (TopAMAX) 25 MG TAB PO ×2 (08:14→21:07)
[2017-08-23] MEDS: ASPIRIN 81 MG CHEW TABLET PO (08:14)
[2017-08-23] MEDS: hydroCHLOROthiazide 25 MG TAB PO (08:14)
[2017-08-23] MEDS: OMEPRAZOLE 20 MG CAP PO (08:14)
[2017-08-23] MEDS: NIFEdipine 60 MG XL TAB PO (08:15)
[2017-08-23] MEDS: LEVEMIR (INSULIN DETEMIR) 1 UNITS/0.01ML SC (08:15)
[2017-08-23 12:15] LABS: BEDSIDE GLUCOSE 311 MG/DL (83-110)
[2017-08-23 16:56] LABS: BEDSIDE GLUCOSE 252 MG/DL (83-110)
[2017-08-23] MEDS: ATORVASTATIN 20 MG TAB PO (21:07)
[2017-08-23] MEDS: FENOFIBRATE 48 MG TAB (TRICOR) PO (21:07)
[2017-08-23 21:10] LABS: BEDSIDE GLUCOSE 217 MG/DL (83-110)
[2017-08-24 07:27] LABS: HEMATOCRIT 33.5 % (42.0-52.0); HEMOGLOBIN 10.6 g/dl (14.0-18.0); MEAN CORPUSCULAR HEMOGLOBIN 27.5 pg (27.0-33.0); MEAN CORPUSCULAR HGB CONC 31.6 g/dl (32.0-36.5); PLATELET COUNT, AUTOMATED 332 10^3/uL (150-450); RED BLOOD COUNT 3.85 10^6/uL (4.30-6.10); RED CELL DISTRIBUTION WIDTH 14.7 % (11.5-14.5); WHITE BLOOD COUNT 8.8 10^3/uL (4.0-10.0)
[2017-08-24 07:46] LABS: ANION GAP 6 MEQ/L (8-16); BLOOD UREA NITROGEN 17 MG/DL (7-18); CALCIUM LEVEL 9.4 MG/DL (8.8-10.2); CARBON DIOXIDE LEVEL 30 MEQ/L (21-32); CHLORIDE LEVEL 107 MEQ/L (98-107); CREATININE FOR GFR 1.09 MG/DL (0.70-1.30); GLOMERULAR FILTRATION RATE > 60.0 (>42); GLUCOSE, FASTING 217 MG/DL (83-110); POTASSIUM SERUM 4.6 MEQ/L (3.5-5.1); SODIUM LEVEL 143 MEQ/L (136-145)
[2017-08-24] MEDS: HumaLOG INSULIN (NovoLOG) PER UNIT SC ×4 (08:42→21:22)
[2017-08-24] MEDS: LEVEMIR (INSULIN DETEMIR) 1 UNITS/0.01ML SC (08:43)
[2017-08-24] MEDS: METOPROLOL TART 50 MG TAB PO ×2 (08:43→21:22)
[2017-08-24] MEDS: VITAMIN D 1,000 INTERNATIONAL UNITS TABLET PO (08:44)
[2017-08-24] MEDS: LACTOBACILLUS ACIDOPHILUS CAP (BACID) PO ×2 (08:44→17:12)
[2017-08-24] MEDS: TOPIRAMATE (TopAMAX) 25 MG TAB PO ×2 (08:44→21:22)
[2017-08-24] MEDS: NIFEdipine 60 MG XL TAB PO (08:44)
[2017-08-24] MEDS: FERROUS GLUCONATE 324 MG TAB PO ×2 (08:44→21:22)
[2017-08-24] MEDS: FINASTERIDE 5 MG TAB PO (08:44)
[2017-08-24] MEDS: OMEPRAZOLE 20 MG CAP PO (08:44)
[2017-08-24] MEDS: hydroCHLOROthiazide 25 MG TAB PO (08:44)
[2017-08-24] MEDS: ASPIRIN 81 MG CHEW TABLET PO (08:44)
[2017-08-24] MEDS: TICAGRELOR 90 MG TABLET (BRILINTA) PO ×2 (08:44→21:22)
[2017-08-24] MEDS: RAMIPRIL 5 MG CAP PO (08:44)
[2017-08-24 12:17] LABS: BEDSIDE GLUCOSE 196 MG/DL (83-110)
[2017-08-24 12:17] LABS: BEDSIDE GLUCOSE 195 MG/DL (83-110)
[2017-08-24 16:48] LABS: BEDSIDE GLUCOSE 301 MG/DL (83-110)
[2017-08-24 20:08] LABS: BEDSIDE GLUCOSE 293 MG/DL (83-110)
[2017-08-24] MEDS: FENOFIBRATE 48 MG TAB (TRICOR) PO (21:22)
[2017-08-24] MEDS: ATORVASTATIN 20 MG TAB PO (21:23)
[2017-08-25 06:17] LABS: BEDSIDE GLUCOSE 190 MG/DL (83-110)
[2017-08-25] MEDS: FERROUS GLUCONATE 324 MG TAB PO (08:50)
[2017-08-25] MEDS: NIFEdipine 60 MG XL TAB PO (08:50)
[2017-08-25] MEDS: RAMIPRIL 5 MG CAP PO (08:51)
[2017-08-25] MEDS: FINASTERIDE 5 MG TAB PO (08:51)
[2017-08-25] MEDS: ASPIRIN 81 MG CHEW TABLET PO (08:51)
[2017-08-25] MEDS: OMEPRAZOLE 20 MG CAP PO (08:51)
[2017-08-25] MEDS: TICAGRELOR 90 MG TABLET (BRILINTA) PO (08:52)
[2017-08-25] MEDS: hydroCHLOROthiazide 25 MG TAB PO (08:52)
[2017-08-25] MEDS: VITAMIN D 1,000 INTERNATIONAL UNITS TABLET PO (08:52)
[2017-08-25] MEDS: METOPROLOL TART 50 MG TAB PO (08:52)
[2017-08-25] MEDS: LACTOBACILLUS ACIDOPHILUS CAP (BACID) PO (08:52)
[2017-08-25] MEDS: HumaLOG INSULIN (NovoLOG) PER UNIT SC (08:53)
[2017-08-25] MEDS: LEVEMIR (INSULIN DETEMIR) 1 UNITS/0.01ML SC (08:54)
[2017-08-25] MEDS: TOPIRAMATE (TopAMAX) 25 MG TAB PO (08:58)
[2017-08-25 11:48] LABS: BEDSIDE GLUCOSE 238 MG/DL (83-110)
== END 2017-08-25 12:05 | disposition home health service (06) | DRG 951 ==
LOC: M PM&R 15:15
PROVIDERS: Physical Medicine & Rehabilitation
DX: Z89.512 Acquired absence of left leg below knee (principal); E11.52 Type 2 diabetes mellitus with diabetic peripheral angiopathy with gangrene; I25.10 Atherosclerotic heart disease of native coronary artery without angina pectoris; E11.40 Type 2 diabetes mellitus with diabetic neuropathy, unspecified; E78.5 Hyperlipidemia, unspecified; D64.9 Anemia, unspecified; E78.00 Pure hypercholesterolemia, unspecified; K21.9 Gastro-esophageal reflux disease without esophagitis; G47.33 Obstructive sleep apnea (adult) (pediatric); N40.0 Benign prostatic hyperplasia without lower urinary tract symptoms; Z79.82 Long term (current) use of aspirin; Z79.4 Long term (current) use of insulin; Z79.891 Long term (current) use of opiate analgesic; Z87.891 Personal history of nicotine dependence; Z95.5 Presence of coronary angioplasty implant and graft